=== PATIENT | female | born 1945 | race Caucasian/White ===

== ENCOUNTER 2019-04-23 15:11 | Inpatient (IN) | payer OTHER ==
[~2019-04-23] VITALS: Ht 154.9 cm; Wt 128.8 kg
[2019-04-23 16:01] VITALS: BP_SYST 116
--- NOTE | 2019-04-23 16:30 | NUR ---
Patient to ER bed 6 to gown for evaluation. Side rails up.
--- NOTE | 2019-04-23 16:42 | NUR ---
Patient presents to ER C/O leg pain, diarrhea, and body aches. Patient A&Ox4, afebrile, arrived via wheelchair, pain 10/10, diarrhea, nausea, denies emesis, bilat lower legs swollen, red, weeping edema. Patient states bilat lower leg pain and swelling x2 weeks.
--- NOTE | 2019-04-23 16:45 | NUR ---
ER at bedside examining patient.
[2019-04-23] MEDS ORDERED: NS 500 ML IV ONE (17:00)
[2019-04-23] MEDS ORDERED: KETOROLAC TROMETHAMINE 30 MG VIAL IVP ONE (17:00)
[2019-04-23 17:17] LABS: BASOPHILS % (AUTO) 0.5 % (0.0-2.0); EOSINOPHILS # (AUTO) 0.1 K/uL (0.0-0.4); EOSINOPHILS % (AUTO) 1.8 % (0.0-4.0); HEMATOCRIT 34.1 % (36-48); HEMOGLOBIN 11.3 g/dL (12.0-16.0); LYMPHOCYTES # (AUTO) 1.4 K/uL (1.0-5.5); LYMPHOCYTES % (AUTO) 24.6 % (20.5-51.5); MEAN CORPUSCULAR HEMOGLOBIN 30 pg (27-31); MEAN CORPUSCULAR HGB CONC 33 % (32-36); MEAN CORPUSCULAR VOLUME 90 fL (79.0-98.0); MONOCYTES # (AUTO) 0.7 K/uL (0.0-1.0); MONOCYTES % (AUTO) 12.7 % (1.7-9.3); NEUTROPHILS # (AUTO) 3.4 K/uL (1.8-7.7); NEUTROPHILS % (AUTO) 60.4 % (40.0-70.0); PLATELET COUNT (AUTO) 241 K/uL (130-430); RED BLOOD CELL COUNT(AUTO) 3.79 MIL/uL (4.2-6.2); RED CELL DISTRIBUTION WIDTH 14.2 % (9.0-15.0); WHITE BLOOD COUNT (AUTO) 5.6 K/uL (4.8-10.8)
--- NOTE | 2019-04-23 17:30 | NUR ---
# 18 gauge angiocath placed to left AC. Use of asceptic technique. Opsite placed over site. Blood return noted. Blood for lab drawn from site. Flushed with 10 cc of normal saline. No evidence of infiltration noted. Patient tolerated well. Medicated per MD orders. IVF infusing with no s/s of infiltration at this time. Will cont to monitor
[2019-04-23 17:37] LABS: PROTHROMBIN TIME 10.4 SECS (9.5-12.5)
[2019-04-23 17:39] LABS: ANION GAP 9 (5-15); CHLORIDE 100 mmol/L (98-107); GLUCOSE 198 mg/dL (70-99); POTASSIUM 4.2 mmol/L (3.5-5.1); SODIUM SERUM 134 mmol/L (136-145); UREA NITROGEN, BLOOD 59 mg/dL (8-21)
[2019-04-23 17:45] LABS: ALANINE AMINOTRANSFERASE 19 U/L (12-78); ASPARTATE AMINOTRANSFERASE 16 U/L (10-37); TOTAL BILIRUBIN 0.3 mg/dL (0.0-1.0)
[2019-04-23] MEDS ORDERED: ENOXAPARIN SODIUM 120 MG/0.8 ML SYRINGE SUBCUT ONE (17:45)
--- NOTE | 2019-04-23 18:00 | NUR ---
Patien taken off bed taylor, unable to provide urine.
[2019-04-23] MEDS ORDERED: VANCOMYCIN HCL 1,000 MG in NS 250 ML IV ONE (18:15)
[2019-04-23] MEDS ORDERED: VANCOMYCIN HCL 1000 MG/VIAL IV ONE (18:41)
--- NOTE | 2019-04-23 19:20 | NUR ---
Report to Marilyn sylvester
[2019-04-23 21:30] LABS: BILIRUBIN,URINE NEGATIVE (NEGATIVE); BLOOD, URINE 2+ (NEGATIVE); CLARITY/URINE CLEAR (CLEAR); COLOR,URINE YELLOW (YELLOW); GLUCOSE,URINE NEGATIVE (NEGATIVE); KETONES,URINE NEGATIVE (NEGATIVE); LEUKOCYTE ESTERASE ,URINE 2+ (NEGATIVE); NITRITE, URINE NEGATIVE (NEGATIVE); PROTEIN URINE NEGATIVE (NEGATIVE); UROBILINOGEN,URINE 0.2 (0.2-1.0)
--- NOTE | 2019-04-23 21:30 | NUR ---
PATIENT FOR ADMIT. PENDING ADMISSION BED ASSIGNMENT
[2019-04-23 21:58] LABS: WBC,URINE 20-50 /HPF (0-3)
[2019-04-23 21:59] LABS: BACTERIA,URINE RARE /HPF (None Seen); MUCUS,URINE 1+ /LPF (None Seen)
--- NOTE | 2019-04-23 23:00 | NUR ---
@2400 PATIENT URINE(BSC), AND STOOL FOR OB COLLECTED AND SENT TO LAB. PERICARE DONE, SKINCARE AND BARRIER CREAM APPLIED.@ PRESENT PATIENT OOB TO CHAIR. HAS HOSPITAL BED, FOR COMFORT MEASSURES, PENDING BED ASSIGNMENT.
[2019-04-24] MEDS ORDERED: ALBUTEROL SULFATE 0.083% 2.5 MG/3 ML VIAL.NEB INH PRN
[2019-04-24] MEDS ORDERED: ONDANSETRON HCL 4 MG/2 ML VIAL IVP PRN
--- NOTE | 2019-04-24 00:10 | NUR ---
PATIENT HAS A BED ASSIGNMENT RM 129B.
[2019-04-24 00:13] VITALS: BP_SYST 116
[2019-04-24] MEDS ORDERED: LEVOFLOXACIN 500 MG/D5W 100 ML IV SCH (00:30)
[2019-04-24] MEDS: metroNIDAZOLE 500 mg/NS 100 ML IV SCH ×5 (00:30→21:49)
[2019-04-24] MEDS ORDERED: LEVOFLOXACIN 500 MG/D5W 100 ML IV ONE (01:00)
--- NOTE | 2019-04-24 01:08 | NUR ---
ADMISSION NOTE Received patient from ER via gurney. Patient admitted with diagnosis of NONSTEMI. Patient is awake, alert, oriented X 4. Patient oriented to hospital room, call light, toileting, pain management and safety-teach back done. Patient informed that LAMONT will be HER nurse and that their room number is 129B. Personal belongings checked and Belongings List documented. Call light within reach.
--- NOTE | 2019-04-24 01:15 | NUR ---
Patient will be admitted to care of NOE Marquez. Admitted to TELE unit, RM 129B, VIA HOSP BED. Belongings list completed. Complete and up to date summary report printed. SBAR report to be given at bedside with opportunity for questions.
[2019-04-24 01:16] VITALS: BP_SYST 118
--- NOTE | 2019-04-24 02:20 | NUR ---
INITIAL NOTE AT INITIAL ASSESSMENT, PATIENT IS RESTING IN BED, STABLE, NO SIGNS OF RESPIRATORY DISTRESS. PATIENT VERBALIZES TOLERABLE PAIN AT THIS TIME. PLAN OF CARE FOR THE EVENING IS COMMUNICATED WITH THE PATIENT. PATIENT SUCCESSFULLY DEMONSTRATES CORRECT USAGE OF CALL LIGHT AT THIS TIME. BED IS LOCKED, ALARMED, AND AT THE LOWEST LEVEL. FALL AND SAFETY PRECAUTIONS WILL BE IN PLACE THROUGHOUT THE SHIFT.
--- NOTE | 2019-04-24 04:00 | NUR ---
WOUND CARE NOTE WOUND CARE PERFORMED AT THIS TIME, WOUND PICTURES ALSO TAKEN. PATIENT TOLERATED WELL. SHE IS REPOSITIONED FOR COMFORT. AT THIS TIME, SHE IS STABLE, NO SIGNS OF RESPIRATORY DISTRESS. CALL LIGHT IS WITHIN REACH. BED IS LOCKED, ALARMED, AND AT THE LOWEST LEVEL.
--- NOTE | 2019-04-24 04:08 | NUR ---
Consultation Paged Reason for Consultation: NSTEMI Was consult called: Y Person who was notified: Conventions Assistant 22 Consulting Physician: Adebayo Barajas Trade Economist Ordering Physician: Dr. Nielsen
[2019-04-24] MEDS ORDERED: metroNIDAZOLE 500 mg/NS 200 ML IV ONE (04:10)
[2019-04-24] MEDS ORDERED: LEVOFLOXACIN 250 MG/D5W 50 ML IV ONE ×2 (04:10→06:11)
[2019-04-24] MEDS: LEVOFLOXACIN 250 MG/D5W 50 ML IV SCH ×2 (04:53→20:11)
--- NOTE | 2019-04-24 06:00 | NUR ---
CLOSING NOTE BLOOD SUGAR CHECK AT THIS TIME REQUIRES INSULIN COVERAGE AT THIS TIME. PATIENT SLEPT WELL THROUGHOUT THE SHIFT. AT THIS TIME, SHE IS STABLE, NO SIGNS OF RESPIRATORY DISTRESS. CALL LIGHT IS WITHIN REACH. WILL CONTINUE TO MONITOR UNTIL SHIFT REPORT IS GIVEN AT BEDSIDE TO AM NURSE.
[2019-04-24] MEDS: ACETAMINOPHEN 325 MG TABLET PO PRN ×2 (06:02→17:04)
[2019-04-24] MEDS: INSULIN LISPRO SLIDING SCALE 100 UNITS/ML VIAL (humaLOG) SUBCUT PRN ×3 (06:19→20:22)
[2019-04-24 06:33] LABS: BASOPHILS % (AUTO) 0.5 % (0.0-2.0); EOSINOPHILS # (AUTO) 0.1 K/uL (0.0-0.4); EOSINOPHILS % (AUTO) 1.8 % (0.0-4.0); HEMATOCRIT 31.9 % (36-48); HEMOGLOBIN 10.5 g/dL (12.0-16.0); LYMPHOCYTES # (AUTO) 0.9 K/uL (1.0-5.5); LYMPHOCYTES % (AUTO) 15.6 % (20.5-51.5); MEAN CORPUSCULAR HEMOGLOBIN 30 pg (27-31); MEAN CORPUSCULAR HGB CONC 33 % (32-36); MEAN CORPUSCULAR VOLUME 91 fL (79.0-98.0); MONOCYTES # (AUTO) 0.7 K/uL (0.0-1.0); MONOCYTES % (AUTO) 12.1 % (1.7-9.3); PLATELET COUNT (AUTO) 192 K/uL (130-430); RED BLOOD CELL COUNT(AUTO) 3.52 MIL/uL (4.2-6.2); RED CELL DISTRIBUTION WIDTH 14.1 % (9.0-15.0); WHITE BLOOD COUNT (AUTO) 5.7 K/uL (4.8-10.8)
[2019-04-24 07:06] LABS: ALANINE AMINOTRANSFERASE 21 U/L (12-78); ALBUMIN 2.4 g/dL (3.4-4.8); ANION GAP 8 (5-15); ASPARTATE AMINOTRANSFERASE 17 U/L (10-37); CALCIUM 7.4 mg/dL (8.4-11.0); CHLORIDE 103 mmol/L (98-107); CREATININE 1.35 mg/dL (0.55-1.30); GLUCOSE 199 mg/dL (70-99); POTASSIUM 4.1 mmol/L (3.5-5.1); SODIUM SERUM 135 mmol/L (136-145); TOTAL BILIRUBIN 0.3 mg/dL (0.0-1.0); UREA NITROGEN, BLOOD 56 mg/dL (8-21)
--- NOTE | 2019-04-24 07:08 | NUR ---
INITIAL NOTE AT INITIAL ASSESSMENT, PATIENT IS RESTING IN BED, STABLE, NO SIGNS OF RESPIRATORY DISTRESS. PATIENT VERBALIZES TOLERABLE PAIN AT THIS TIME. PLAN OF CARE FOR THE EVENING IS COMMUNICATED WITH THE PATIENT. PATIENT SUCCESSFULLY DEMONSTRATES CORRECT USAGE OF CALL LIGHT AT THIS TIME. BED IS LOCKED, ALARMED, AND AT THE LOWEST LEVEL. FALL AND SAFETY PRECAUTIONS WILL BE IN PLACE THROUGHOUT THE SHIFT. Addendum: 04/24/19 at 0717 by Sergio Fam RN NOTE INTENDED FOR DIFFERENT TIME
[2019-04-24 08:00] VITALS: BP_SYST 105
--- NOTE | 2019-04-24 08:00 | NUR ---
OPENING NOTE: RECEIVED PATIENT FROM NOC RN. PATIENT RESTING IN BED WITH EYES CLOSED, AROUSAL TO LIGHT STIMULI. PATIENT ABLE TO OPEN EYES AND RESPOND TO LIGHT STIMULI. PATIENT ON ROOM AIR AND SATURATING WNL. NO ACUTE SIGNS OF RESP DISTRESS, NO SOB. BREATHING EVEN AND UNLABORED. IV INTACT AND PATENT, NO REDNESS/SWELLING TO SITE. BED AT LOWEST POSITION, CALL LIGHT IN REACH. CONTINUE TO MONITOR.
--- NOTE | 2019-04-24 08:14 | NUR ---
PAGED DR RO FOR CRITICAL LABS. SPOKE WITH ALTA [phone]
[2019-04-24 08:54] LABS: CHOLESTEROL 110 mg/dL (<200); HDL CHOLESTEROL 41 mg/dL (>55); TRIGLYCERIDES 221 mg/dL (30-150)
[2019-04-24 08:55] LABS: LDL CHOLESTEROL 42 mg/dL (<100)
[2019-04-24] MEDS: ASPIRIN 81 MG TAB.CHEW PO SCH (09:30)
--- NOTE | 2019-04-24 10:00 | NUR ---
ROUNDING: PATIENT IS AWAKE, ALERT AND ORIENTEDX4. PATIENT WATCHING TV. PATIENT TOLERATED AM MEDS PER MD ORDERS. DENIES PAIN AT THIS TIME. ALL NEEDS MET. CONTINUE TO MONITOR.
[2019-04-24] MEDS ORDERED: ISOS30TA6 PO (10:55)
[2019-04-24] MEDS ORDERED: APIX5TAB4 PO (10:55)
[2019-04-24] MEDS ORDERED: FERR159T2 PO (10:55)
[2019-04-24] MEDS ORDERED: HYDR-3698 PO (10:55)
[2019-04-24] MEDS ORDERED: GLUXR500 PO (10:55)
[2019-04-24] MEDS ORDERED: IMO2 PO (10:55)
[2019-04-24] MEDS ORDERED: LISI40TA4 PO (10:55)
[2019-04-24] MEDS ORDERED: FURO-150 PO (10:55)
[2019-04-24] MEDS ORDERED: ASPI-1153 PO (10:55)
[2019-04-24] MEDS ORDERED: LIP10 PO (10:55)
[2019-04-24] MEDS ORDERED: GLIP5TAB26 PO (10:55)
[2019-04-24] MEDS ORDERED: BUME1TAB8 PO (10:55)
[2019-04-24] MEDS ORDERED: GABA-531 PO (10:55)
[2019-04-24] MEDS ORDERED: HYDROcodone/ACETAMIN 5-325 MG TAB (NORCO/ VICODIN) PO PRN (11:30)
--- NOTE | 2019-04-24 11:30 | NUR ---
OCHOA CATH: # 16 FR Ochoa catheter with 10 cc bulb inserted with use of sterile technique. Bulb inflated with 10 cc sterile water. Immediate return of 300 cc yellow urine noted. Bedside drainage bag placed below level of bladder. Urine sample collected and sent to lab. Pt tolerated procedure.
--- NOTE | 2019-04-24 12:00 | NUR ---
ROUNDING: NO CHANGE IN PATIENT STATUS. CONTINUE TO MONITOR.
[2019-04-24 12:51] VITALS: BP_SYST 91
--- NOTE | 2019-04-24 13:39 | NUR ---
CONSULT GI GI BLEED DR GOVEA [phone] DR OCHOA FUEL HOUSE ATTENDANT S/W [facility]
--- NOTE | 2019-04-24 13:40 | NUR ---
CONSULT ID CELLULITIS DR HODGE [phone] S/W [facility]
--- NOTE | 2019-04-24 14:20 | NUR ---
PAGED DR. RO: PAGED DR. RO IN REGARDS TO PATIENT C/O CHEST PAIN. PER PATIENT "IM HAVING CHEST PRESSURE/PAIN BUT IT MIGHT BE BECAUSE I ATE SO FAST". PATIENT STATED 11/[address] AIKEN RESPONDED TO PAGE. RECEIVED NEW ORDERS, READ BACK AND VERIFIED ORDERS.
[2019-04-24] MEDS ORDERED: NITROGLYCERIN 0.4 MG TAB.SUBL SL PRN (14:30)
[2019-04-24] MEDS ORDERED: SIMETHICONE 80 MG TAB.CHEW PO ONE (14:30)
[2019-04-24] MEDS ORDERED: *HEPARIN PER PHARMACY XX ONE (14:30)
--- NOTE | 2019-04-24 14:50 | NUR ---
DR. AIKEN AT BEDSIDE: DR. AIKEN (EMR ANALYST) AT BEDSIDE TO SEE PATIENT. DR. AIKEN SPOKE TO PATIENT AND PATIENTS SISTER IN REGARDS TO PLAN OF CARE. PER DR. AIKEN "HOLD OFF ON THE HEPARIN DRIP. I DONT THINK SHE NEEDS IT RIGHT NOW". PATIENT STATED THAT HER CHEST PAIN IS GONE, "I RELIEVED SOME PRESSURE. I THINK IT WAS GAS AND I HAD TO BURP IT OUT. BUT I FEEL BETTER".
[2019-04-24] MEDS ORDERED: COMMUNICATION ORDER XX ONE (15:15)
--- NOTE | 2019-04-24 16:00 | NUR ---
ROUNDING: PATIENT FEELING BETTER, PATIENT AWAKE AND ALERT WATCHING TV. HER SISTER AT BEDSIDE. DENIES ANY COMPLAIN AT THIS TIME. WILL CONTINUE TO MONITOR.
[2019-04-24 16:55] VITALS: BP_SYST 118
--- NOTE | 2019-04-24 16:58 | NUR ---
WOUND EVALUATION: Wound Consult received from Dr. Corona. Thank you, Dr. Corona, for the consult. Patient received in a [place] Bed with a mattress, awake, alert, and oriented. Patient is unable to turn independently. Peterson Score is a 16. Past Medical History: Hypertension, Diabetes Mellitus, Hyperlipidemia, Pacemaker, Coronary Artery Bypass Surgery. Recent Labs: WBC 5.7, RBC 3.52, hemoglobin 10.5, hematocrit 31.9, BUN 56, creatinine 1.35, glucose 199, POC glucose 149, calcium 7.4, serum total protein 5.7, albumin 2.4, PTT 42.8. Microbiology: Blood culture results 2 in progress. Stool occult blood results negative. Urine culture results in progress. Intrinsic factors that delay wound healing: Diabetes Mellitus, Hypoalbuminemia. Extrinsic factors that delay wound healing: Decreased mobility. Wound Assessment: 1. Right distal posterior lower extremity: Venous insufficiency ulcer, present on admission. Wound bed has 70% yellow eschar, 30% pink tissue. Mild odor, small serous drainage. Periwound intact. Extremity has erythema, dry, scaly skin, firm edema, lipodermatosclerosis, and hemosiderin staining. Scant serous weeping on right medial aspect of calf. Wound measures 4.0 cm x 7.0 cm. Recommend: Cleanse wound with normal saline. Apply SurePrep to shelly-wound. Apply Eucerin cream to non-wound areas of leg and foot. Cover with non-adhesive foam dressings. Place oil emulsion dressing on right medial calf area where weeping is occurring. Wrap with jonnie wrap. Perform wound care daily, and as needed for dressing soiling or dislodgement. Elevate extremity as tolerated. Encourage 20 ankle pumps every hour. 2. Left mid posterior calf: Venous insufficiency ulcer, present on admission. Wound bed has 70% pink tissue, 30% white tissue. Mild odor, small serous drainage. Periwound intact. Extremity has erythema, dry, scaly skin, firm edema, lipodermatosclerosis, and hemosiderin staining. Wound measures 9.5 cm x 8.0 cm. Recommend: Cleanse wound with normal saline. Apply SurePrep to shelly-wound. Apply Eucerin cream to non-wound areas of leg and foot. Cover with non-adhesive foam dressings. Wrap with jonnie wrap. Perform wound care daily, and as needed for dressing soiling or dislodgement. Elevate extremity as tolerated. Encourage 20 ankle pumps every hour. 3. Abdominal pannus: Intertriginous dermatitis with erythema, present on admission. Recommend: Cleanse involved area with mild soap and water. Pat dry. Apply antifungal powder to involved area. Place pillow case in between abdominal pannus area. Perform site care twice a day, and as needed for soiling. Also recommend: Encourage and assist patient as needed with repositioning every 2 hours with pillow support and off-load pressure areas with pillows for pressure re-distribution. Offload, elevate and float bilateral heels with pillows. Perform skin care and monitor skin integrity Q shift. Use moisture barrier cream on buttocks and other moisture susceptible areas QID and as needed for soiling. Recommend arterial Doppler study with CHARLI to rule out arterial insufficiency. If CHARLI is within normal limits recommend adding compression to dressing order set.
[2019-04-24] MEDS ORDERED: EMOLLIENT COMBINATION NO.73 78 GM CREAM..G. TP SCH (17:45)
--- NOTE | 2019-04-24 18:00 | NUR ---
ROUNDING: PATIENT WAS SEEN BY PROJECT DIRECTOR, NIMISHA. PATIENT TOLERATED BILATERAL LEG EVALUATION FROM NIMISHA. NO ACUTE SIGNS OF RESP DISTRESS, NO SOB. BREATHING EVEN AND UNLABORED. WILL CONTINUE TO MONITOR. WILL ENDORSE PLAN OF CARE TO NOC RN.
[2019-04-24] MEDS ORDERED: BALSAM PERU/CASTOR OIL 60 GM OINT...G. TP ONE (19:00)
--- NOTE | 2019-04-24 19:20 | NUR ---
OPENING NOTES RECEIVED PATIENT IN BED AAO X4. BREATHING UNLABORED ON ROOM AIR. NO C/O PAIN AT THIS TIME. BED IN LOWEST LOCKED POSITION WITH ALARM ON. CALL LIGHT WITH IN REACH.
[2019-04-24 19:31] LABS: BILIRUBIN,URINE NEGATIVE (NEGATIVE); CLARITY/URINE CLEAR (CLEAR); COLOR,URINE YELLOW (YELLOW); GLUCOSE,URINE NEGATIVE (NEGATIVE); KETONES,URINE NEGATIVE (NEGATIVE); LEUKOCYTE ESTERASE ,URINE NEGATIVE (NEGATIVE); NITRITE, URINE NEGATIVE (NEGATIVE); PH,URINE 5.5 (5.0-8.0); PROTEIN URINE NEGATIVE (NEGATIVE); UROBILINOGEN,URINE 0.2 (0.2-1.0)
[2019-04-24 19:35] LABS: BLOOD, URINE TRACE (NEGATIVE)
[2019-04-24 19:58] VITALS: BP_SYST 95
[2019-04-24] MEDS: DOXYCYCLINE HYCLATE 100 MG CAPSULE PO SCH (20:11)
[2019-04-24] MEDS: EMOLLIENT COMBINATION NO.73 78 GM CREAM..G. TP SCH (20:12)
[2019-04-24] MEDS: NYSTATIN 15 GM TOPICAL POWDER TP SCH (20:13)
[2019-04-24 20:20] LABS: BACTERIA,URINE RARE /HPF (None Seen)
--- NOTE | 2019-04-24 20:30 | NUR ---
WOUND CARE WOUND CARE DONE ON BLE WOUNDS ORDERED. DUE MEDICATIONS GIVEN. VITAL SIGNS STABLE.
--- NOTE | 2019-04-24 22:10 | NUR ---
Pagestalin Nielsen s/w Negra
[2019-04-24] MEDS ORDERED: DIPHENHYDRAMINE HCL 25 MG CAPSULE PO PRN (22:15)
[2019-04-25 00:23] VITALS: BP_SYST 106
--- NOTE | 2019-04-25 00:25 | NUR ---
ROUNDS PATIENT RESTING IN BED. BREATHING UNLABORED. VITAL SIGNS STABLE. CALL LIGHT WITH IN REACH.
--- NOTE | 2019-04-25 02:40 | NUR ---
ROUNDS PATIENT RESTING IN BED. NO DISTRESS NOTED. CALL LIGHT WITH IN REACH.
[2019-04-25] MEDS: metroNIDAZOLE 500 mg/NS 100 ML IV SCH ×3 (05:48→20:48)
--- NOTE | 2019-04-25 07:10 | NUR ---
CLOSING NOTES PATIENT RESTING IN BED. BREATHING UNLABORED ON ROOM AIR. PATIENT NEEDS ATTENDED. KEPT NPO FOR STRESS TEST TODAY. BED IN LOWEST LOCKED POSITION. CALL LIGHT WITH IN REACH.
--- NOTE | 2019-04-25 07:20 | NUR ---
opening note patient is resting in bed, alert and oriented, educated head correction officer light system and plan of care, patient verbalized understanding, no signs of distress at this time, [employer] [place] came to talk to patient about the stress test, no other needs addressed at this time, brake armed, two side rails up, call light within reach, bed alarm on, fall/safety precautions in place. Addendum: 04/25/19 at 0740 by Ana Navas RN xochitl in place, IV dressing secured.
[2019-04-25 08:00] VITALS: BP_SYST 123
[2019-04-25] MEDS: EMOLLIENT COMBINATION NO.73 78 GM CREAM..G. TP SCH ×2 (09:00→21:01)
[2019-04-25] MEDS: BALSAM PERU/CASTOR OIL 60 GM OINT...G. TP SCH (09:00)
[2019-04-25] MEDS ORDERED: REGADENOSON 0.4 MG/5 ML SYRINGE IVP ONE (09:30)
--- NOTE | 2019-04-25 09:40 | NUR ---
patient off unit went for lexiscan stress test, Dr Cason saw patient before she left.
--- NOTE | 2019-04-25 10:42 | NUR ---
Nutrition Update Peterson Scale 16 noted. Pt admitted for NSTEMI. Diet: NPO BMI: 53.6 kg/m2 RD to follow per nutrition care standards.
--- NOTE | 2019-04-25 11:30 | NUR ---
patient back on unit patient back on unit, in stable condition.
[2019-04-25] MEDS: ATORVASTATIN 20 MG TABLET PO SCH (11:41)
[2019-04-25] MEDS: DOXYCYCLINE HYCLATE 100 MG CAPSULE PO SCH ×2 (11:41→20:48)
[2019-04-25] MEDS: ASPIRIN 81 MG TAB.CHEW PO SCH (11:41)
[2019-04-25] MEDS: ISOSORBIDE MONONITRATE 30 MG TAB.ER.24H PO SCH (11:42)
[2019-04-25] MEDS: NYSTATIN 15 GM TOPICAL POWDER TP SCH ×2 (11:43→21:01)
[2019-04-25 12:01] VITALS: BP_SYST 114
--- NOTE | 2019-04-25 12:08 | NUR ---
patient resting in bed visitor in the room, patient watching tv, informed patient about new diet, patient verbalized understanding, morning medications and blood sugar check were done, patient tolerated well, no other need at this time, no signs of distress at this time, fall/safety precautions in place.
--- NOTE | 2019-04-25 14:30 | NUR ---
IV antibiotic patient resting in bed, visitor at the bedside, watching tv, educated on medication use and side effects, patient verbalized understanding and tolerating well, no signs of distress at this time, no other needs addressed at this time, fall/safety precautions in place.
[2019-04-25 16:10] VITALS: BP_SYST 109
--- NOTE | 2019-04-25 16:26 | NUR ---
patient resting in bed patient watching tv, no signs of distress at this time, no other need at this time, no signs of distress at this time, fall/safety precautions in place.
--- NOTE | 2019-04-25 16:35 | NUR ---
Dietitian Recommendations * [facility] clear liquid[facility] * Consider advance to C[facility], cardiac diet if/when medically appropriate SWAPNA, RD Please refer to Nutrition Assessment for details. Addendum: 04/25/19 at [address] Amended: Links added.
[2019-04-25] MEDS ORDERED: BISACODYL 5 MG TABLET.DR (DULCOLAX) PO ONE (17:00)
[2019-04-25] MEDS: INSULIN LISPRO SLIDING SCALE 100 UNITS/ML VIAL (humaLOG) SUBCUT PRN ×2 (17:15→20:54)
[2019-04-25] MEDS ORDERED: GOLYTELY / COLYTE SOLUTION 4 LITERS PO ONE (18:00)
--- NOTE | 2019-04-25 18:55 | NUR ---
closing note patient is resting in bed, watching tv and eating dinner no signs of distress at this time, informed patient that she will not have colonoscopy tomorrow anymore, needs full cardiac clearance, no other needs addressed at this time, brake armed, two side rails up, call light within reach, bed alarm on, fall/safety precautions in place, leung in place, will endorse report to noc shift nurse to continue with care, will endorse wound care and pictures.
--- NOTE | 2019-04-25 19:05 | NUR ---
OPENING NOTES RECEIVED PATIENT IN BED AAO X4. BREATHING UNLABORED ON ROOM AIR. DENIES PAIN AT THIS TIME. BED IN LOWEST LOCKED POSITION WITH ALARM ON. CALL LIGHT WITH IN REACH.
[2019-04-25 20:43] VITALS: BP_SYST 106
--- NOTE | 2019-04-25 20:48 | NUR ---
MED PASS PATIENT DUE MEDICATIONS GIVEN. VITAL SIGNS STABLE.
--- NOTE | 2019-04-25 21:00 | NUR ---
WOUND CARE WOUND CARE DONE ON BILATERAL LOWER LEG WOUNDS ORDERED.
--- NOTE | 2019-04-26 00:20 | NUR ---
HS CARE HS CARE DONE BY SALES TRADER. LINENS CHANGED.
--- NOTE | 2019-04-26 01:20 | NUR ---
ROUNDS PATIENT RESTING IN BED. NO DISTRESS NOTED. VITAL SIGNS STABLE. CALL LIGHT WITH IN REACH.
[2019-04-26 02:13] VITALS: BP_SYST 118; BP_SYST 129
--- NOTE | 2019-04-26 03:30 | NUR ---
ROUNDS PATIENT RESTING IN BED. NO DISTRESS NOTED.
[2019-04-26] MEDS: metroNIDAZOLE 500 mg/NS 100 ML IV SCH ×3 (05:43→21:02)
--- NOTE | 2019-04-26 05:59 | NUR ---
MED PASS PATIENT DUE ANTIBIOTIC INFUSING. AM FINGER STICK SUGAR 143. NO INSULIN COVERAGE NEEDED. JELO PROVIDED PER PATIENT REQUEST.
--- NOTE | 2019-04-26 06:23 | NUR ---
CLOSING NOTES PATIENT NEEDS ATTENDED. BREATHING UNLABORED ON ROOM AIR. BED IN LOWEST LOCKED POSITION WITH ALARM ON. CALL LIGHT WITH IN REACH.
--- NOTE | 2019-04-26 07:00 | NUR ---
OPENING NOTES PT RESTING IN BED. CHEST RISE AND FALL NOTED. NONLABORED BREATHING NOTED. NO ACUTE DISTRESS NOTED. IV INTACT AND PATENT, NO INFILTRATION NOTED. OCHOA CATHETER INTACT AND PATENT, DRAINING WELL. WOUND DRESSING CLEAN, DRY, AND INTACT. PT DENIES PAIN. BED IN LOCKED AND LOWEST POSITION. BED ALARM ON. FALL AND ASPIRATION PRECAUTIONS IN PLACE. ALL NEEDS MET. CALL LIGHT IN REACH. CONTINUE TO MONITOR.
--- NOTE | 2019-04-26 07:53 | NUR ---
diet PATIENT HAS NOT BEEN CLEARED BY CARDIAC FOR COLONOSCOPY. MD BOTELLO CLEAR LIQUID DIET
[2019-04-26 08:00] VITALS: BP_SYST 134
[2019-04-26] MEDS: ISOSORBIDE MONONITRATE 30 MG TAB.ER.24H PO SCH (09:07)
[2019-04-26] MEDS: ATORVASTATIN 20 MG TABLET PO SCH (09:07)
[2019-04-26] MEDS: ASPIRIN 81 MG TAB.CHEW PO SCH (09:07)
[2019-04-26] MEDS: DOXYCYCLINE HYCLATE 100 MG CAPSULE PO SCH ×2 (09:07→21:01)
[2019-04-26] MEDS: EMOLLIENT COMBINATION NO.73 78 GM CREAM..G. TP SCH ×2 (09:08→21:02)
[2019-04-26] MEDS: NYSTATIN 15 GM TOPICAL POWDER TP SCH ×2 (09:08→21:02)
--- NOTE | 2019-04-26 09:08 | NUR ---
ROUTINE MEDS ROUTINE MEDS ADMINISTERED ORDERED PER MD. EDUCATION GIVEN. TOLERATED WELL. NO ACUTE DISTRESS NOTED. ALL NEEDS MET. CALL LIGHT IN REACH. CONTINUE TO MONITOR.
[2019-04-26] MEDS: BALSAM PERU/CASTOR OIL 60 GM OINT...G. TP SCH (09:09)
--- NOTE | 2019-04-26 09:10 | NUR ---
ROUTINE MEDS ROUTINE MEDS ADMINISTERED ORDERED PER MD. EDUCATION GIVEN. HOB ELEVATED. TOLERATED WELL. NO ACUTE DISTRESS NOTED. ALL NEEDS MET. CALL LIGHT IN REACH. CONTINUE TO MONITOR.
--- NOTE | 2019-04-26 11:32 | NUR ---
ACCUCHECK DONE. RESULT 254 MG/DL, EDUCATION GIVEN, TOLERATED WELL. INSULIN COVERAGE GIVEN ORDERED PER MD, EDUCATION GIVEN, TOLERATED WELL. NO ACUTE DISTRESS NOTED. ALL NEEDS MET. CALL LIGHT IN REACH. CONTINUE TO MONITOR.
[2019-04-26] MEDS: INSULIN LISPRO SLIDING SCALE 100 UNITS/ML VIAL (humaLOG) SUBCUT PRN ×2 (11:33→21:06)
[2019-04-26 12:38] VITALS: BP_SYST 116
--- NOTE | 2019-04-26 13:00 | NUR ---
TAKEN TO RADIOLOGY FOR PART TWO OF STRESS TEST. OFF THE FLOOR.
--- NOTE | 2019-04-26 14:15 | NUR ---
PT BACK ON FLOOR FROM RADIOLOGY PART TWO STRESS TEST. PATIENT STABLE. NO ACUTE DISTRESS NOTED. ALL NEEDS METS. CALL LIGHT IN REACH. CONTINUE TO MONITOR.
--- NOTE | 2019-04-26 16:00 | NUR ---
ROUNDS PT RESTING IN BED. CHEST RISE AND FALL NOTED. NONLABORED BREATHING NOTED. NO ACUTE DISTRESS. ALL NEEDS MET. CALL LIGHT IN REACH. CONTINUE TO MONITOR.
[2019-04-26 16:03] VITALS: BP_SYST 136
--- NOTE | 2019-04-26 16:49 | NUR ---
SPOKE WITH DR. ADAMS REPORTED RESULTS OF THE LEXISCAN - NO FURTHER ORDERS - PATIENT OKAY TO DISCHARGE.
--- NOTE | 2019-04-26 16:51 | NUR ---
OK PLANNING BED AVAILABLE AT [facility] [phone] ROOM 216B [facility] ON WILL CALL
--- NOTE | 2019-04-26 17:32 | NUR ---
TRANSPORT CALLED [facility] AT [phone] AND SPOKE WITH NILESH. AMBULANCE SCHEDULED FOR 2130 PICKUP
--- NOTE | 2019-04-26 19:03 | NUR ---
CLOSING NOTE PT AWAKE WATCHING TELEVISION IN BED. NO ACUTE DISTRESS NOTED. OCHOA CATHETER INTACT AND PATENT, DRAINING WELL. BED IN LOWEST AND LOCKED POSITION. BED ALARM ON. ALL NEEDS MET. CALL LIGHT IN REACH. FALL AND ASPIRATION PRECAUTIONS IN PLACE. WILL ENDORSE TO NOC NURSE. AMBULANCE PICK-UP TIME IS 2129.
--- NOTE | 2019-04-26 19:10 | NUR ---
OPENING NOTES RECEIVE REPORT FROM MORNING SHIFT NURSE. PATIENT AOX4, WATCHING TV. FOR DISCHARGE. PATIENT HAS NO SIGNS OF RESPIRATORY DISTRESS NOTED. DENIES PAIN AND DISCOMFORT. IV SITE, PATENCY NOTED. CALL LIGHT WITHIN REACH. PATIENT EDUCATED TO USE CALL LIGHT WHEN ASSISTANCE IS NEEDED. SAFETY PRECAUTIONS IN PLACE. BED ALARM ON. WILL CONTINUE TO MONITOR
--- NOTE | 2019-04-26 20:11 | NUR ---
REPORT GIVEN TO MARANDA PAN OF TIFFANIE NEGRETE AT THIS TIME.
[2019-04-26 20:12] VITALS: BP_SYST 140
--- NOTE | 2019-04-26 21:02 | NUR ---
MED PASS DUE MEDICATION GIVEN AT THIS TIME. PATIENT TOLERATED WELL. NO SIGNS OF RESPIRATORY DISTRESS NOTED. DENIES PAIN AND DISCOMFORT. WILL CONTINUE TO MONITOR
[2019-04-26 21:47] VITALS: BP_SYST 140
--- NOTE | 2019-04-26 22:25 | NUR ---
DISCHARGE REPORT GIVEN TO [facility]. PATIENTS VITAL SIGNS STABLE. IV CATHETER REMOVED AND INTACT. OCHOA CATHETER DISCONTINUE. TELEMONITOR REMOVED. NO SIGNS OF RESPIRATORY DISTRESS NOTED. DENIES PAIN AND DISCOMFORT AT THIS T1ME. PATIENT SAFELY TRANSFER TO AMBULANCE VIA [facility]. DISCHARGE AT [id number]
== END 2019-04-26 22:25 | DRG 280 ==
LOC: SED 15:11 → STU 19:40
PROVIDERS: ADMIT Internal Medicine Hospice and Palliative Medicine; ATTEND Internal Medicine Hospice and Palliative Medicine
DX: I21.A1 Myocardial infarction type 2 (principal); N17.0 Acute kidney failure with tubular necrosis; L03.115 Cellulitis of right lower limb; N39.0 Urinary tract infection, site not specified; I44.2 Atrioventricular block, complete; K92.2 Gastrointestinal hemorrhage, unspecified; L03.116 Cellulitis of left lower limb; D64.9 Anemia, unspecified; E11.9 Type 2 diabetes mellitus without complications; E66.01 Morbid (severe) obesity due to excess calories; E78.5 Hyperlipidemia, unspecified; I10 Essential (primary) hypertension; I25.10 Atherosclerotic heart disease of native coronary artery without angina pectoris; I87.8 Other specified disorders of veins; R07.89 Other chest pain; I87.2 Venous insufficiency (chronic) (peripheral); E78.00 Pure hypercholesterolemia, unspecified; Z83.3 Family history of diabetes mellitus; Z88.0 Allergy status to penicillin; Z95.0 Presence of cardiac pacemaker; Z95.1 Presence of aortocoronary bypass graft; Z95.5 Presence of coronary angioplasty implant and graft; Z68.53 Body mass index [BMI] pediatric, 85th percentile to less than 95th percentile for age; Z88.5 Allergy status to narcotic agent; Z79.899 Other long term (current) drug therapy; Z79.82 Long term (current) use of aspirin
CPT/HCPCS: 36415; 71045; 80053; 80061; 81000-TC; 82272; 82962; 83036; 83605; 84484; 85025; 85610-TC; 85730-TC; 87040-TC; 87086; 93005; 93017; 93306; 96365; 96366; 96372; 96375; 99285; A9500; G0378; J1650; J1885; J1956; J2405; J2785; J3370; J3490; J7040; J7050

== ENCOUNTER 2020-08-07 09:51 | Emergency (ER) | payer OTHER, SELFPAY ==
[~2020-08-07] VITALS: Ht 144.8 cm; Wt 158.8 kg
[2020-08-07 09:51] VITALS: BP_SYST 128
[~2020-08-07 09:51] MED LIST: APIX5TAB4 PO; ASPI-1393 PO; BUME1TAB8 PO; FURO-150 PO; GABA-531 PO; GLIP5TAB26 PO; GLUXR500 PO; INSU200I SQ; ISOS30TA85 PO; LIP10 PO; PRO40 PO
[2020-08-07] MEDS ORDERED: LORazepam 1 MG TABLET PO ONE (10:15)
[2020-08-07] MEDS ORDERED: MORPHINE 4 MG INJ. 4 MG/ML VIAL IVP ONE (10:15)
[2020-08-07] MEDS ORDERED: ASPIRIN 81 MG TAB.CHEW PO ONE (11:00)
[2020-08-07 11:02] LABS: BASOPHILS # (AUTO) 0.1 K/uL (0.0-0.2); BASOPHILS % (AUTO) 1.4 % (0.0-2.0); EOSINOPHILS # (AUTO) 0.2 K/uL (0.0-0.4); EOSINOPHILS % (AUTO) 3.3 % (0.0-4.0); HEMOGLOBIN 10.3 g/dL (12.0-16.0); LYMPHOCYTES # (AUTO) 1.4 K/uL (1.0-5.5); LYMPHOCYTES % (AUTO) 25.5 % (20.5-51.5); MEAN CORPUSCULAR HEMOGLOBIN 27 pg (27-31); MEAN CORPUSCULAR HGB CONC 31 % (32-36); MEAN CORPUSCULAR VOLUME 87 fL (79.0-98.0); MONOCYTES # (AUTO) 0.6 K/uL (0.0-1.0); MONOCYTES % (AUTO) 10.8 % (1.7-9.3); NEUTROPHILS # (AUTO) 3.1 K/uL (1.8-7.7); PLATELET COUNT (AUTO) 208 K/uL (130-430); RED BLOOD CELL COUNT(AUTO) 3.79 MIL/uL (4.2-6.2); RED CELL DISTRIBUTION WIDTH 15.4 % (9.0-15.0); WHITE BLOOD COUNT (AUTO) 5.3 K/uL (4.8-10.8)
[2020-08-07 11:06] LABS: ANION GAP 7 (5-15); CALCIUM 8.5 mg/dL (8.4-11.0); CHLORIDE 106 mmol/L (98-107); CREATININE 1.11 mg/dL (0.55-1.30); GLUCOSE 185 mg/dL (70-99); POTASSIUM 4.6 mmol/L (3.5-5.1); SODIUM SERUM 143 mmol/L (136-145); UREA NITROGEN, BLOOD 28 mg/dL (8-21)
[2020-08-07 11:08] LABS: ALANINE AMINOTRANSFERASE 39 U/L (12-78); ALBUMIN 3.3 g/dL (3.4-4.8); ASPARTATE AMINOTRANSFERASE 34 U/L (10-37); TOTAL BILIRUBIN 0.9 mg/dL (0.0-1.0)
[2020-08-07 15:30] VITALS: BP_SYST 113
== END 2020-08-07 15:31 | disposition home or self-care (01) ==
LOC: SED 09:51
DX: M47.894 Other spondylosis, thoracic region (principal); E66.01 Morbid (severe) obesity due to excess calories; R07.89 Other chest pain; R25.2 Cramp and spasm; I10 Essential (primary) hypertension; E11.9 Type 2 diabetes mellitus without complications; K21.9 Gastro-esophageal reflux disease without esophagitis; E78.00 Pure hypercholesterolemia, unspecified; Z95.0 Presence of cardiac pacemaker; Z79.899 Other long term (current) drug therapy; Z79.82 Long term (current) use of aspirin; Z88.0 Allergy status to penicillin; Z88.6 Allergy status to analgesic agent
CPT/HCPCS: 36415; 71045; 72072; 80053; 82550; 83880; 84484; 85025; 93005; 96374; 99285; J2270

== ENCOUNTER 2020-09-04 14:05 | Emergency (ER) | payer OTHER ==
[~2020-09-04] VITALS: Ht 144.8 cm; Wt 158.8 kg
[2020-09-04 14:26] VITALS: BP_SYST 128
[2020-09-04] MEDS ORDERED: fentaNYL CITRATE/PF 100 MCG/2 ML AMP IVP ONE (14:45)
[2020-09-04 15:19] LABS: ANION GAP 6 (5-15); CALCIUM 7.9 mg/dL (8.4-11.0); CHLORIDE 105 mmol/L (98-107); CREATININE 1.22 mg/dL (0.55-1.30); GLUCOSE 231 mg/dL (70-99); POTASSIUM 4.1 mmol/L (3.5-5.1); SODIUM SERUM 142 mmol/L (136-145); UREA NITROGEN, BLOOD 29 mg/dL (8-21)
[2020-09-04 15:26] LABS: EOSINOPHILS # (AUTO) 0.1 K/uL (0.0-0.4); EOSINOPHILS % (AUTO) 2.1 % (0.0-4.0); HEMATOCRIT 30.7 % (36-48); HEMOGLOBIN 9.7 g/dL (12.0-16.0); LYMPHOCYTES # (AUTO) 0.9 K/uL (1.0-5.5); LYMPHOCYTES % (AUTO) 20.2 % (20.5-51.5); MEAN CORPUSCULAR HEMOGLOBIN 27 pg (27-31); MEAN CORPUSCULAR HGB CONC 32 % (32-36); MEAN CORPUSCULAR VOLUME 85 fL (79.0-98.0); MONOCYTES # (AUTO) 0.5 K/uL (0.0-1.0); MONOCYTES % (AUTO) 10.8 % (1.7-9.3); NEUTROPHILS % (AUTO) 65.9 % (40.0-70.0); PLATELET COUNT (AUTO) 192 K/uL (130-430); RED CELL DISTRIBUTION WIDTH 16.2 % (9.0-15.0); WHITE BLOOD COUNT (AUTO) 4.6 K/uL (4.8-10.8)
[2020-09-04 15:27] LABS: ALANINE AMINOTRANSFERASE 29 U/L (12-78); ALBUMIN 2.9 g/dL (3.4-4.8); ASPARTATE AMINOTRANSFERASE 27 U/L (10-37); TOTAL BILIRUBIN 0.6 mg/dL (0.0-1.0)
[2020-09-04] MEDS ORDERED: FUROSEMIDE 20 MG/2 ML VIAL IVP ONE (16:00)
[2020-09-04 16:59] VITALS: BP_SYST 128
== END 2020-09-04 16:55 | disposition home or self-care (01) ==
LOC: SED 14:05
DX: R60.0 Localized edema (principal); I10 Essential (primary) hypertension; E11.9 Type 2 diabetes mellitus without complications; K21.9 Gastro-esophageal reflux disease without esophagitis; E78.00 Pure hypercholesterolemia, unspecified; Z88.0 Allergy status to penicillin; Z88.5 Allergy status to narcotic agent; Z79.82 Long term (current) use of aspirin; Z79.899 Other long term (current) drug therapy
CPT/HCPCS: 36415; 71045; 80053; 83880; 84484; 85025; 93005; 96374; 96375; 99285; J1940; J3010

== ENCOUNTER 2021-04-03 13:19 | Inpatient (IN) | payer OTHER, SELFPAY ==
[~2021-04-03] VITALS: Ht 152.4 cm; Wt 117.9 kg
[2021-04-03 13:35] VITALS: BP_SYST 138
--- NOTE | 2021-04-03 15:56 | NUR ---
BROUGHT BACK TO HALLWAY BED AND REPORT GIVEN TO RU
--- NOTE | 2021-04-03 16:06 | NUR ---
Report received from Bee LIU. Patient awake, alert and oriented x 3. Per report received, patient reporting chest discomfort and black stools at home. EKG done in triage. Labs being drawn at bedside now. Awaiting further evaluation.
[2021-04-03 16:23] LABS: BASOPHILS # (AUTO) 0.1 K/uL (0.0-0.2); BASOPHILS % (AUTO) 1.1 % (0.0-2.0); EOSINOPHILS # (AUTO) 0.1 K/uL (0.0-0.4); EOSINOPHILS % (AUTO) 1.8 % (0.0-4.0); HEMATOCRIT 33.5 % (36-48); HEMOGLOBIN 10.7 g/dL (12.0-16.0); LYMPHOCYTES # (AUTO) 1.3 K/uL (1.0-5.5); LYMPHOCYTES % (AUTO) 22.4 % (20.5-51.5); MEAN CORPUSCULAR HEMOGLOBIN 28 pg (27-31); MEAN CORPUSCULAR HGB CONC 32 % (32-36); MEAN CORPUSCULAR VOLUME 88 fL (79.0-98.0); MONOCYTES # (AUTO) 0.4 K/uL (0.0-1.0); MONOCYTES % (AUTO) 7.9 % (1.7-9.3); NEUTROPHILS # (AUTO) 3.8 K/uL (1.8-7.7); NEUTROPHILS % (AUTO) 66.8 % (40.0-70.0); PLATELET COUNT (AUTO) 160 K/uL (130-430); RED CELL DISTRIBUTION WIDTH 17.2 % (9.0-15.0); WHITE BLOOD COUNT (AUTO) 5.7 K/uL (4.8-10.8)
[2021-04-03 16:39] LABS: ANION GAP 2 (5-15); CALCIUM 8.5 mg/dL (8.4-11.0); CHLORIDE 101 mmol/L (98-107); CREATININE 0.91 mg/dL (0.55-1.30); GLUCOSE 158 mg/dL (70-99); POTASSIUM 4.3 mmol/L (3.5-5.1); SODIUM SERUM 137 mmol/L (136-145); UREA NITROGEN, BLOOD 32 mg/dL (8-21)
[2021-04-03 16:48] LABS: ALANINE AMINOTRANSFERASE 27 U/L (12-78); ALBUMIN 3.4 g/dL (3.4-4.8); ASPARTATE AMINOTRANSFERASE 21 U/L (10-37); TOTAL BILIRUBIN 1.2 mg/dL (0.0-1.0)
--- NOTE | 2021-04-03 18:37 | NUR ---
Put on manager energy. VSS. O2 low 80's; patient stated she is on O2 at home. Placed on 3L nasal cannula.
--- NOTE | 2021-04-03 19:15 | NUR ---
Report given to Reina LIU to assume care of patient
--- NOTE | 2021-04-03 19:17 | NUR ---
REPORT RECEIVED FROM GABRIELA LIU
[2021-04-03] MEDS ORDERED: HYDROcodone/ACETAMIN 5-325 MG TAB (NORCO/ VICODIN) PO ONE (19:45)
--- NOTE | 2021-04-03 19:49 | NUR ---
PT C/O OF ABD PAIN, ABD PAIN, AND HEADACHE. STILL REQUESTING FOOD DUE TO HAVING CONTINUED ABD PAIN, HEADACHE, AND LEFT SIDED CHEST PAIN. MD AWARE. ASSISTED MD AT BEDSIDE FOR GUAIC TEST. REMAINS ON BEDSIDE MONITOR
--- NOTE | 2021-04-03 20:00 | NUR ---
REDNESS AND SWELLING LOOKS LIKE CELLULITIS TO ABD AND BILATERAL LOWER EXTREMITIES. PT STATES SHE HAS A HISTORY OF CELLULITIS
--- NOTE | 2021-04-03 20:00 | NUR ---
PT HAS SWELLING TO BILATERAL LEGS AND ABD. BOTH AREAS RED IN COLOR AND PAINFUL TO TOUCH.
--- NOTE | 2021-04-03 20:02 | NUR ---
PT ORDERED NORCO FOR PAIN, PT REFUSED NORCO, MED WASTED
[2021-04-03] MEDS ORDERED: ONDANSETRON HCL 4 MG/2 ML VIAL IVP PRN ×2 (22:15→22:30)
[2021-04-03] MEDS ORDERED: NACL 0.9% 1,000 ML IV SCH (22:15)
[2021-04-03] MEDS ORDERED: MORPHINE 4 MG INJ. 4 MG/ML VIAL IVP PRN (22:30)
[2021-04-03] MEDS ORDERED: PANTOPRAZOLE SODIUM 40 MG/VIAL (PROTONIX) IVP ONE (22:45)
--- NOTE | 2021-04-03 23:10 | NUR ---
PT STILL COMPLAINING OD ABD PAIN -11/12 WILL MEDICATE ORDERD.
--- NOTE | 2021-04-03 23:13 | NUR ---
COVID SWAB COLLECTED AND HANDED TO LAB TACH.
[2021-04-03] MEDS ORDERED: MORPHINE 4 MG INJ. 4 MG/ML VIAL ONE (23:21)
--- NOTE | 2021-04-03 23:21 | NUR ---
W=ILL MEDICATE ORDERED WITH ADMIT ORDERS FOR PT FOR PAIN
--- NOTE | 2021-04-04 01:24 | NUR ---
PT SLEEPING, RESPIRATIOND REGULAR EVEN AND UNLABORED . CONTINUES TO MONITOR. WAITING FORA BED AT THIS TIME
--- NOTE | 2021-04-04 01:48 | NUR ---
Chuck king in ED - 04/04/21 at 0149 by [email or web address] PT PLACED ON BEDPAN, NEEDS TO URINATE.
--- NOTE | 2021-04-04 01:50 | NUR ---
PT PLACED ON BEDPAN, NEEDS TO URINATE.
--- NOTE | 2021-04-04 03:50 | NUR ---
PT MOVED TO BED 2. CONTINUES TO C/O NONSTOP PAIN TO ENTIRE BODY AT THIS POINT. UNABLE, TO HELP PT GET COMFORTABLE IN BED.
[2021-04-04] MEDS: MORPHINE 2 MG/ML INJ. SYRINGE IVP PRN ×3 (04:03→20:53)
--- NOTE | 2021-04-04 05:12 | NUR ---
ASSISTED PT ONTO BEDPAN, URINATED APPROX 250 ML OF URINE. WILL CONTINUE TO MONITOR PT
--- NOTE | 2021-04-04 06:12 | NUR ---
PT STILL MOANING AND CRYING IN REGARDS TO BEING IN TOTAL BODY PAIN. CONTINUES TO ASK FOR WATER , ADVISED PT SHE IS NPO WHICH MEANS SHE CANNOT HAVE ANYTHING TO EAT OR DRINK. PT REMAINS ON BEDSIDE MONITOR, IV INFUSING AT 120ML/HR.
--- NOTE | 2021-04-04 06:17 | NUR ---
DR SULTANA ADVISED OF CELLULITIS. ASKED IF HE WANTED TO VIEW, NO NEW ORDERS AT THIS TIME
--- NOTE | 2021-04-04 06:34 | NUR ---
IV TO RAC INFILTRATED, IV D/C'ED AND ICE PACK APPLIED TO AREA. NOCWARM BLANKETS TO APPLY. NEW IV STARTED TO LAC, IV FUSING.
--- NOTE | 2021-04-04 06:49 | NUR ---
MEDICATING WITH MORE PAIN MEDS. PT IS CONSTAMTLY CRYING, C/O EVERYTHING HURTING, NOW ITS HER BOOBS INCLUDED IN HER ENTIRE BODY. GOING TO MEDICATE AGAIN WITH MORPHINE. PT STILL ON BEDSIDE MONITOR, V/S REMAIN STABLE. ICE PACK REMOVED FROMRIGHT ARM DUE TO PT COMPLAINING ITS TOO COLD AND CAUSING MORE PAIN. PT ALSO CONTINOUSLY COMPLAINS ABOUT NEEDING WATER THAT SHES DEHYDRATED, ADVISED PT SHE IS RECEIVING IV FLUIDS WHICH IS HYDRATING HER. WANTS TO KNOW WHEN THE DOCTOR WILL BE IN SO SHE CAN EAT OR DRINK. TOLD PT UNABLE TO PROVIDE SPECIFIC TIME AND THE IMPORTANCE OF HER NOT TAKING ANYTHING BY MOUTH DUE TO GI BLEED R/O. PT LAYING IN BED CRYING.
[2021-04-04] MEDS: NACL 0.9% 1,000 ML IV SCH ×2 (07:20→16:39)
--- NOTE | 2021-04-04 07:21 | NUR ---
REPORT GIVEN TO JOHNSON LIU FOR CONTINUED CARE
--- NOTE | 2021-04-04 07:23 | NUR ---
Dr Jensen evaluating patient at bedside .
[2021-04-04] MEDS ORDERED: APIX5TAB4 PO (08:00)
[2021-04-04] MEDS ORDERED: INSU100V3 SQ (08:00)
[2021-04-04] MEDS ORDERED: TOPXL100 PO (08:00)
--- NOTE | 2021-04-04 08:13 | NUR ---
order received from Dr Jensen for clear liquid diet.diet well tolerated
--- NOTE | 2021-04-04 08:56 | NUR ---
Pt A&Ox4, VSS, respirations even and unlabored, cap refill <3
[2021-04-04] MEDS ORDERED: PANTOPRAZOLE SODIUM 40 MG/VIAL (PROTONIX) IVP SCH (09:00)
[2021-04-04] MEDS: PANTOPRAZOLE SODIUM 40 MG/VIAL (PROTONIX) IVP SCH ×2 (09:46→20:51)
--- NOTE | 2021-04-04 10:05 | NUR ---
pt transfer to hospital bed, well tolerated
--- NOTE | 2021-04-04 12:00 | NUR ---
Called Dr Mcnair to notify patient has redness/itching/possible skin infection on upper and lower extremities, awaiting for call back
--- NOTE | 2021-04-04 14:47 | NUR ---
Called Dr Kee to lam[place] about redness and itching on bilateral extremities, no answer
[2021-04-04] MEDS ORDERED: METOCLOPRAMIDE HCL 10 MG/2 ML VIAL IVP PRN (15:00)
--- NOTE | 2021-04-04 15:10 | NUR ---
Dr Harris at bedside evaluating patient at this time.
[2021-04-04] MEDS ORDERED: ONDANSETRON HCL 4 MG/2 ML VIAL IVP PRN (15:15)
[2021-04-04] MEDS ORDERED: IPRATROPIUM BROM 0.5 MG/2.5 ML VIAL.NEB (ATROVENT) INH PRN (15:15)
[2021-04-04] MEDS ORDERED: ACETAMINOPHEN 325 MG TABLET PO PRN (15:15)
[2021-04-04] MEDS ORDERED: LORazepam 2 MG/ML VIAL IVP PRN (15:15)
[2021-04-04] MEDS ORDERED: ALBUTEROL SULFATE 0.083% 2.5 MG/3 ML VIAL.NEB INH PRN (15:15)
[2021-04-04] MEDS ORDERED: HYDROcodone/ACETAMIN 5-325 MG TAB (NORCO/ VICODIN) PO PRN (15:15)
[2021-04-04] MEDS ORDERED: HYDROcodone/ACETAMIN 10-325 MG TAB PO PRN (15:15)
[2021-04-04] MEDS ORDERED: NALOXONE HCL 0.4 MG/ML AMP (NARCAN) IVP PRN ×2 (15:15)
--- NOTE | 2021-04-04 15:26 | NUR ---
Pt A&Ox4, respirations even and unlabored, cap refill <3.
--- NOTE | 2021-04-04 15:26 | NUR ---
Lab at bedside
[2021-04-04] MEDS ORDERED: DIPHENHYDRAMINE INJ 50 MG/ML VIAL ONE ×2 (15:49→22:17)
[2021-04-04] MEDS: DIPHENHYDRAMINE INJ 50 MG/ML VIAL IVP PRN ×2 (16:00→22:18)
--- NOTE | 2021-04-04 17:26 | NUR ---
Pt eating dinner at this time, (clear liquid diet )well tolerated .
--- NOTE | 2021-04-04 18:13 | NUR ---
Lab at bedside
--- NOTE | 2021-04-04 19:17 | NUR ---
Report given to October RN
--- NOTE | 2021-04-04 19:27 | NUR ---
REPORT RECEICED FROM JOHNSON LIU
--- NOTE | 2021-04-04 19:44 | NUR ---
PT RESTING IN BED AT THIS TIME, REMAINS ON BEDSIDE MONITOR. DENIES ANY DISTRESS AT THIS TIME. WILL CONTINUE TO MONITOR.
--- NOTE | 2021-04-04 20:21 | NUR ---
PT CONTINUES TO BEND HER ARM WITH THE IV, BOARD AND WRAP PUT IN PLACED
[2021-04-04] MEDS ORDERED: MORPHINE 2 MG/ML INJ. SYRINGE ONE ×2 (20:40→23:57)
[2021-04-04] MEDS ORDERED: PANTOPRAZOLE SODIUM 40 MG/VIAL (PROTONIX) ONE ×2 (20:40→20:45)
[2021-04-04] MEDS ORDERED: GABAPENTIN 100 MG CAPSULE ONE (20:40)
[2021-04-04] MEDS: glipiZIDE XL 5 MG TAB ( GLUCOTROL XL) PO SCH (20:51)
--- NOTE | 2021-04-04 20:53 | NUR ---
PT STATES SHE WANTS TO TALK TO HER DOCTOR TO FIND OUT WHATS GOING ON WITH HER STATUS, ADVISED GI DOC WAS HERE THIS MORNING, PT DOESNT NOT RECALL TALKING TO HIM. STATES SHESTILL HAS PAIN AND IS UNCOMFORTABLE. LET PT KNOWADMITTING DOCTOR WILL NOT BE IN TO SEE HER TONIGHT.
[2021-04-04] MEDS: GABAPENTIN 100 MG CAPSULE PO SCH (21:10)
--- NOTE | 2021-04-04 22:13 | NUR ---
PT CONTINUES TO HAVING ITCHING TI ARMS AND CHEST, WILL MEDICATE WITH BENADRYL
--- NOTE | 2021-04-04 23:50 | NUR ---
PT C/O THAT SHE NEEDS TO BE REPOSITONED IN BED. PT CONTINOUSLY C/O PAIN WITH EVERY MOVEMENT AND TOUCHING OF PT. WILL MEDICATE FOR PAIN ORDERED.
--- NOTE | 2021-04-05 01:20 | NUR ---
BEDSIDE MONITOR SHOWS BP 150/89 68 94% 17
--- NOTE | 2021-04-05 02:26 | NUR ---
PT'S IV STILL INFUSING, PT CONTINUES TO BEND HER ARM EVEN WITH BOARD IN PLACE.
--- NOTE | 2021-04-05 02:44 | NUR ---
PT FINALLY SLEEPING, REMAINS ON MONITOR. RESPIRATIONS REGULAR EVEN AND UNLABORED. BED IN LOWEST POSTION, SIDERAIL UP X 1 AND BED LOCKED
[2021-04-05] MEDS: DIPHENHYDRAMINE INJ 50 MG/ML VIAL IVP PRN (03:31)
[2021-04-05] MEDS: MORPHINE 2 MG/ML INJ. SYRINGE IVP PRN ×2 (03:32→06:47)
[2021-04-05] MEDS ORDERED: DIPHENHYDRAMINE INJ 50 MG/ML VIAL ONE (03:34)
[2021-04-05] MEDS ORDERED: MORPHINE 2 MG/ML INJ. SYRINGE ONE ×2 (03:35→06:43)
--- NOTE | 2021-04-05 03:42 | NUR ---
ALSO HAVING LEG AND FOOT PAIN, MEDICATED ORDERED
--- NOTE | 2021-04-05 03:42 | NUR ---
PT CONTINUES TO COMPLAIN OF HER ANKLES AND FEET ITCHING AND REQUESTIING ME TO SCRATCH THEM. MEDICATED WITH BENADRYL. ADVISED UNABLE TO SCRATCH HER FEET
[2021-04-05] MEDS: NACL 0.9% 1,000 ML IV SCH ×3 (04:01→16:43)
--- NOTE | 2021-04-05 06:47 | NUR ---
PT AWAKE AND STILL C/O OF TOTAL BODY ACHES AND ITCHING. STATES BLOOD PRESSURE CUFF TOO PAINFUL, MOVING HER HURTS TO MUCH. REQUESTED MORE MEDS
--- NOTE | 2021-04-05 07:20 | NUR ---
REPORT GIVEN TO ROME LIU
--- NOTE | 2021-04-05 07:55 | NUR ---
PT IS RESTING IN BED. STABLE AND CALM.
--- NOTE | 2021-04-05 08:30 | NUR ---
PT HAD REFUSED LAB DRAW THIS MORNING. RN ASKED PT AFTER THE FLAME ANNEALING MACHINE SETTER, AND PT CONTINUES TO REFUSE.
--- NOTE | 2021-04-05 11:25 | NUR ---
RN HAS BEEN ADVISED TO HOLD COUMADIN. NOTED
--- NOTE | 2021-04-05 11:35 | NUR ---
CONSULTATION PAGED/CALLED Reason for Consultation: [] CHF Person Who was Notified: [] KALPANA Consulting Physician: [] DR KIM Database Consultant Specialty: [] BUSINESS DEVELOPMENT Ordering Physician: [] DR SALGADO/
--- NOTE | 2021-04-05 11:38 | NUR ---
CONSULTATION PAGED/CALLED Reason for Consultation: [] CELLULITIS Person Who was Notified: [] KALPANA Consulting Physician: [] DR PERAZA Sectionizer Specialty: [] ID Ordering Physician: [] DR SALGADO
--- NOTE | 2021-04-05 12:59 | NUR ---
PT BEING TAKEN TO THE TELEMETRY FLOOR NOW.
--- NOTE | 2021-04-05 13:25 | NUR ---
Patient transferred from ER to telemetry unit in stable condition.
[2021-04-05 13:30] VITALS: BP_SYST 95
[2021-04-05] MEDS: BUMETANIDE 1 MG TABLET PO SCH (14:30)
[2021-04-05] MEDS: METOPROLOL SUCCINATE 50 MG TAB.SR.24H (TOPROL XL) PO SCH (14:30)
[2021-04-05] MEDS: PANTOPRAZOLE SODIUM 40 MG/VIAL (PROTONIX) IVP SCH ×2 (14:30→22:28)
[2021-04-05] MEDS: ISOSORBIDE MONONITRATE 30 MG TAB.ER.24H PO SCH (14:30)
[2021-04-05] MEDS: glipiZIDE XL 5 MG TAB ( GLUCOTROL XL) PO SCH ×2 (14:30→22:28)
[2021-04-05] MEDS: GABAPENTIN 100 MG CAPSULE PO SCH ×2 (16:23→22:28)
[2021-04-05] MEDS: ATORVASTATIN 10 MG TABLET PO SCH (16:23)
--- NOTE | 2021-04-05 16:25 | NUR ---
Routine Scheduled medications given per order. Patient stable.
--- NOTE | 2021-04-05 16:45 | NUR ---
Routine Started new IVF bag. Patient stable.
[2021-04-05 17:07] VITALS: BP_SYST 106
--- NOTE | 2021-04-05 17:18 | NUR ---
Routine Checked blood sugar: 80 mg/dl - no coverage required. Patient stable; resting quietly in bed with no distress noted and no complaint of pain.
[2021-04-05 21:00] VITALS: BP_SYST 115
[2021-04-06 01:00] VITALS: BP_SYST 109
[2021-04-06] MEDS: NACL 0.9% 1,000 ML IV SCH ×3 (01:20→16:17)
--- NOTE | 2021-04-06 05:06 | NUR ---
Reposition & Turning patient on two hour schedule , new linin applied comfort measures implemented off loading with pillows no SOB activity tolerated skin dry warm .
[2021-04-06 08:00] VITALS: BP_SYST 131
[2021-04-06] MEDS ORDERED: DIPHENHYDRAMINE HCL 12.5 MG/5 ML UDC PO PRN (09:00)
[2021-04-06] MEDS: PANTOPRAZOLE SODIUM 40 MG/VIAL (PROTONIX) IVP SCH ×2 (09:16→21:27)
[2021-04-06] MEDS: glipiZIDE XL 5 MG TAB ( GLUCOTROL XL) PO SCH ×2 (09:17→21:27)
[2021-04-06] MEDS: ATORVASTATIN 10 MG TABLET PO SCH (09:18)
[2021-04-06] MEDS: GABAPENTIN 100 MG CAPSULE PO SCH ×3 (09:18→21:27)
[2021-04-06] MEDS: BUMETANIDE 1 MG TABLET PO SCH (09:18)
[2021-04-06] MEDS: METOPROLOL SUCCINATE 50 MG TAB.SR.24H (TOPROL XL) PO SCH (09:19)
[2021-04-06] MEDS: ISOSORBIDE MONONITRATE 30 MG TAB.ER.24H PO SCH (09:19)
[2021-04-06] MEDS: HYDROcodone/ACETAMIN 7.5-325 MG TAB PO PRN ×2 (09:20→13:49)
--- NOTE | 2021-04-06 11:28 | NUR ---
Nutrition Update Peterson Scale 17 noted. Pt admitted for GI bleed. Diet: clear liquid BMI: 51 kg/m2 RD to follow per nutrition care standards.
--- NOTE | 2021-04-06 12:20 | NUR ---
alert, oriented, didnot even want to talk much, " Had a bad night, cant sleep here , too noisy, want to be left alone, however asked whether she can have pain meds. when asked where the pain which bothered her, " all over, wants morphine if possible". My initial assessment revealed she will need NORCO, instead. on bedrest with brp, still on clear liquid. Did not want to eat, just want to rest for now
--- NOTE | 2021-04-06 17:04 | NUR ---
Dietitian Recommendations * Consider advance to full liquid diet if/when medically appropriate LP, RD Please refer to Nutrition Assessment for details. Addendum: 04/06/21 at [address] Amended: Links added.
[2021-04-06] MEDS: INSULIN REGULAR, HUMAN 100 UNITS/ML, 10 ML VIAL (humuLIN R) SUBCUT PRN (18:38)
[2021-04-06 21:00] VITALS: BP_SYST 133
--- NOTE | 2021-04-06 21:51 | NUR ---
Patient awake alert HOB elevated ORANGE JUICE po given , assist for position change also off loading with pillows comfort measures implemented Heels kept elevated / .
[2021-04-07 00:10] VITALS: BP_SYST 92
[2021-04-07] MEDS: NACL 0.9% 1,000 ML IV SCH ×3 (01:25→16:14)
[2021-04-07] MEDS: INSULIN REGULAR, HUMAN 100 UNITS/ML, 10 ML VIAL (humuLIN R) SUBCUT PRN ×2 (01:28→17:57)
--- NOTE | 2021-04-07 06:06 | NUR ---
Blood Sugar Glucose BSG 149mg dl patienr awake & alert ORANGE JUICE po given tolerated / .
[2021-04-07] MEDS: glipiZIDE XL 5 MG TAB ( GLUCOTROL XL) PO SCH ×2 (08:44→21:28)
[2021-04-07 08:45] VITALS: BP_SYST 90
[2021-04-07] MEDS: BUMETANIDE 1 MG TABLET PO SCH (08:45)
--- NOTE | 2021-04-07 08:45 | NUR ---
Pt resting in bed at 0700, A+Ox4. Pt denies pain. IV noted- IVF infusing- patent. CSMW satisfactory. Pt c/o headache. No dizziness, chest pain, N+T. Pt obese/puffy, ?edema globally. Lungs diminished. SOBOE and dry cough noted. 2L PIPELINE CONSTRUCTION INSPECTOR 97%. bs x4. void QS. No n+v. Will assess skin this afternoon. VSS. Med accepting. Pt eager to go home. Will continue to monitor. Addendum: 04/07/21 at 1102 by Shira Anderson RN BP soft. Reviewed with Dr. júnior nance with am bp meds to be given per eMAR.
[2021-04-07] MEDS: ATORVASTATIN 10 MG TABLET PO SCH (08:46)
[2021-04-07] MEDS: GABAPENTIN 100 MG CAPSULE PO SCH ×3 (08:46→21:28)
[2021-04-07] MEDS: PANTOPRAZOLE SODIUM 40 MG/VIAL (PROTONIX) IVP SCH ×2 (08:46→21:28)
[2021-04-07] MEDS: METOPROLOL SUCCINATE 50 MG TAB.SR.24H (TOPROL XL) PO SCH (08:48)
[2021-04-07] MEDS: ISOSORBIDE MONONITRATE 30 MG TAB.ER.24H PO SCH (09:00)
[2021-04-07 11:39] VITALS: BP_SYST 100
--- NOTE | 2021-04-07 12:45 | NUR ---
LAB INFORMED BY FAIZAN THAT HE IS UNABLE TO DRAW LABS (HARD STICK) INFORMED DR SALGADO (ON THE FLOOR) HE STATES LABS MUST BE DRAWN, AND TO HAVE LAB TRY AGAIN. INFORMED FAIZAN OF DR IZQUIERDO REQUEST HE STATES HE WILL HAVE ANOTHER TECH ATTEMPT TO DRAW LABS., RN INFORMED
[2021-04-07 13:31] LABS: BASOPHILS % (AUTO) 0.3 % (0.0-2.0); EOSINOPHILS # (AUTO) 0.2 K/uL (0.0-0.4); EOSINOPHILS % (AUTO) 2.1 % (0.0-4.0); HEMATOCRIT 31.1 % (36-48); HEMOGLOBIN 10.1 g/dL (12.0-16.0); LYMPHOCYTES # (AUTO) 0.6 K/uL (1.0-5.5); LYMPHOCYTES % (AUTO) 7.6 % (20.5-51.5); MEAN CORPUSCULAR HEMOGLOBIN 29 pg (27-31); MEAN CORPUSCULAR HGB CONC 32 % (32-36); MEAN CORPUSCULAR VOLUME 90 fL (79.0-98.0); MONOCYTES # (AUTO) 0.6 K/uL (0.0-1.0); MONOCYTES % (AUTO) 8.4 % (1.7-9.3); NEUTROPHILS # (AUTO) 5.9 K/uL (1.8-7.7); NEUTROPHILS % (AUTO) 81.6 % (40.0-70.0); PLATELET COUNT (AUTO) 157 K/uL (130-430); RED BLOOD CELL COUNT(AUTO) 3.47 MIL/uL (4.2-6.2); RED CELL DISTRIBUTION WIDTH 17.9 % (9.0-15.0); WHITE BLOOD COUNT (AUTO) 7.3 K/uL (4.8-10.8)
[2021-04-07 13:41] LABS: ANION GAP 6 (5-15); CHLORIDE 99 mmol/L (98-107); CREATININE 2.15 mg/dL (0.55-1.30); GLUCOSE 265 mg/dL (70-99); POTASSIUM 4.7 mmol/L (3.5-5.1); SODIUM SERUM 132 mmol/L (136-145); UREA NITROGEN, BLOOD 39 mg/dL (8-21)
[2021-04-07 15:33] VITALS: BP_SYST 97
--- NOTE | 2021-04-07 17:35 | NUR ---
PT EVAL AND INITIAL TX COMPLETED, PLAN OF CARE ESTABLISHED. SEE EVAL FOR DETAILS.
--- NOTE | 2021-04-07 18:27 | NUR ---
Pt resting in bed. No voiced concerns. Eating dinner. Bed in low position. ivf infusing. call whelan in reach. Will continue to monitor.
[2021-04-07 20:09] VITALS: BP_SYST 129
[2021-04-08 00:49] VITALS: BP_SYST 94
[2021-04-08] MEDS: INSULIN REGULAR, HUMAN 100 UNITS/ML, 10 ML VIAL (humuLIN R) SUBCUT PRN ×2 (01:41→18:17)
[2021-04-08] MEDS: NACL 0.9% 1,000 ML IV SCH (02:30)
[2021-04-08 03:39] VITALS: BP_SYST 96
[2021-04-08 06:40] LABS: BASOPHILS % (AUTO) 0.5 % (0.0-2.0); EOSINOPHILS # (AUTO) 0.3 K/uL (0.0-0.4); EOSINOPHILS % (AUTO) 2.8 % (0.0-4.0); HEMATOCRIT 31.1 % (36-48); HEMOGLOBIN 10.2 g/dL (12.0-16.0); LYMPHOCYTES # (AUTO) 0.8 K/uL (1.0-5.5); LYMPHOCYTES % (AUTO) 8.8 % (20.5-51.5); MEAN CORPUSCULAR HEMOGLOBIN 29 pg (27-31); MEAN CORPUSCULAR HGB CONC 33 % (32-36); MEAN CORPUSCULAR VOLUME 90 fL (79.0-98.0); MONOCYTES # (AUTO) 0.9 K/uL (0.0-1.0); MONOCYTES % (AUTO) 9.8 % (1.7-9.3); NEUTROPHILS # (AUTO) 7.3 K/uL (1.8-7.7); NEUTROPHILS % (AUTO) 78.1 % (40.0-70.0); PLATELET COUNT (AUTO) 193 K/uL (130-430); RED BLOOD CELL COUNT(AUTO) 3.47 MIL/uL (4.2-6.2); RED CELL DISTRIBUTION WIDTH 17.8 % (9.0-15.0); WHITE BLOOD COUNT (AUTO) 9.4 K/uL (4.8-10.8)
[2021-04-08 06:42] LABS: ANION GAP 10 (5-15); CALCIUM 8.2 mg/dL (8.4-11.0); CHLORIDE 100 mmol/L (98-107); GLUCOSE 119 mg/dL (70-99); POTASSIUM 4.8 mmol/L (3.5-5.1); SODIUM SERUM 134 mmol/L (136-145); UREA NITROGEN, BLOOD 42 mg/dL (8-21)
--- NOTE | 2021-04-08 07:15 | NUR ---
Handoff with NOE Silva. Luis Alejandre RN
[2021-04-08] MEDS: PANTOPRAZOLE SODIUM 40 MG/VIAL (PROTONIX) IVP SCH ×2 (08:31→21:13)
[2021-04-08] MEDS: ATORVASTATIN 10 MG TABLET PO SCH (08:32)
[2021-04-08] MEDS: glipiZIDE XL 5 MG TAB ( GLUCOTROL XL) PO SCH ×2 (08:32→21:13)
[2021-04-08] MEDS: GABAPENTIN 100 MG CAPSULE PO SCH ×3 (08:32→21:13)
[2021-04-08] MEDS: METOPROLOL SUCCINATE 50 MG TAB.SR.24H (TOPROL XL) PO SCH (08:32)
[2021-04-08] MEDS: BUMETANIDE 1 MG TABLET PO SCH (08:33)
[2021-04-08 09:00] VITALS: BP_SYST 99
--- NOTE | 2021-04-08 09:00 | NUR ---
Pt resting in bed at 0700, A+Ox4. Pt denies pain. IV noted- S/L. CSMW satisfactory. No headache, dizziness, chest pain, N+T. Pt obese/puffy, ?edema globally. Lungs diminished. SOBOE and dry cough noted. 5L HARM REDUCTION WORKER 96%. bs x4. void QS. No n+v. Will assess skin this afternoon. VSS. Med accepting. Pt eager to go home. Will continue to monitor.
--- NOTE | 2021-04-08 10:34 | NUR ---
Turned pt with PUMP TENDER and provided shelly care as well as under panis- superficial tears from ++moist from fold. Zinc cream applied. Will try to get order for clotramizole.
[2021-04-08 11:28] VITALS: BP_SYST 107
--- NOTE | 2021-04-08 11:28 | NUR ---
CONSULTATION PAGED/CALLED Reason for Consultation: CHF Person Who was Notified: ZA Consulting Physician: TAMMY Buildings Painter Specialty: Ordering Physician: DAMIAN
--- NOTE | 2021-04-08 12:39 | NUR ---
CONSULTATION PAGED/CALLED Reason for Consultation: RENAL FAILURE Person Who was Notified: ROSALEE Consulting Physician: OSWALD Development And Housing Director Specialty: NEPHRO Ordering Physician: DAMIAN
[2021-04-08 15:27] VITALS: BP_SYST 110
--- NOTE | 2021-04-08 18:08 | NUR ---
Pt resting in bed. No voiced concerns. Eating dinner. Bed in low position. call whelan in reach. Will continue to monitor.
[2021-04-08 20:18] VITALS: BP_SYST 78
[2021-04-09] VITALS (7 sets, daily range): BP systolic 94–156
[2021-04-09] MEDS: INSULIN REGULAR, HUMAN 100 UNITS/ML, 10 ML VIAL (humuLIN R) SUBCUT PRN ×3 (00:21→18:18)
--- NOTE | 2021-04-09 01:35 | NUR ---
LATE ENTRY: SPOKE WITH DOCTOR BENOIT, REGARDING STAFF REQUEST FOR PATIENT OCHOA DECLINES UNLESS JUSTIFICATION FOR PLACEMENT. STAFF REQUEST BLADDER SCAN. PREVOID RESIDUAL [id number]. NILSA LOPEZ RN
[2021-04-09 04:06] LABS: BILIRUBIN,URINE 1+ (NEGATIVE); CLARITY/URINE CLEAR (CLEAR); COLOR,URINE YELLOW (YELLOW); GLUCOSE,URINE NEGATIVE (NEGATIVE); KETONES,URINE NEGATIVE (NEGATIVE); PH,URINE 5.5 (5.0-8.0); PROTEIN URINE TRACE (NEGATIVE)
[2021-04-09 04:07] LABS: BLOOD, URINE TRACE (NEGATIVE); LEUKOCYTE ESTERASE ,URINE NEGATIVE (NEGATIVE); NITRITE, URINE NEGATIVE (NEGATIVE); UROBILINOGEN,URINE 0.2 (0.2-1.0)
[2021-04-09 04:37] LABS: BACTERIA,URINE MODERATE /HPF (None Seen); MUCUS,URINE None Seen /LPF (None Seen)
--- NOTE | 2021-04-09 06:19 | NUR ---
PATIENT NOTES SHE HAS A SENIOR ANDROID SOFTWARE ENGINEER THAT LIVES IN HER HOUSE. WOULD LIKE TO DISCHARGE TO HOME. NILSA LOPEZ RN
--- NOTE | 2021-04-09 07:08 | NUR ---
Handoff with NOE Silva. Luis Alejandre RN
--- NOTE | 2021-04-09 07:41 | NUR ---
PHYSICAL THERAPY CO-SIGN The Physical Therapy Progress Notes documented by Senior Revenue Accountant have been reviewed. Reviewed/Co-Signed by: Jesse Taylor Documentation Done by: LALY FISH PTA Addendum: 04/09/21 at 0742 by Jesse Taylor PT Amended: Links added.
[2021-04-09] MEDS: BUMETANIDE 1 MG TABLET PO SCH (08:11)
[2021-04-09] MEDS: PANTOPRAZOLE SODIUM 40 MG/VIAL (PROTONIX) IVP SCH (08:11)
[2021-04-09] MEDS: ATORVASTATIN 10 MG TABLET PO SCH (08:11)
[2021-04-09] MEDS: glipiZIDE XL 5 MG TAB ( GLUCOTROL XL) PO SCH (08:12)
[2021-04-09] MEDS: METOPROLOL SUCCINATE 50 MG TAB.SR.24H (TOPROL XL) PO SCH (08:12)
[2021-04-09] MEDS: GABAPENTIN 100 MG CAPSULE PO SCH (08:14)
--- NOTE | 2021-04-09 08:45 | NUR ---
Pt resting in bed at 0700, A+Ox4. Pt c/o pain- see eMAR. IV noted- S/L. CSMW satisfactory. No headache, dizziness, chest pain, N+T. Pt obese/puffy, ?edema globally. Lungs diminished. SOBOE and dry cough noted. 2L QUALITY INTERN 99%. bs x4. void- leung insitu. No n+v. Will assess skin this afternoon. VSS. Med accepting. Will continue to monitor.
[2021-04-09 09:09] LABS: BASOPHILS % (AUTO) 0.3 % (0.0-2.0); EOSINOPHILS # (AUTO) 0.2 K/uL (0.0-0.4); EOSINOPHILS % (AUTO) 2.9 % (0.0-4.0); HEMATOCRIT 32.1 % (36-48); HEMOGLOBIN 10.3 g/dL (12.0-16.0); LYMPHOCYTES # (AUTO) 0.7 K/uL (1.0-5.5); LYMPHOCYTES % (AUTO) 10.5 % (20.5-51.5); MEAN CORPUSCULAR HEMOGLOBIN 28 pg (27-31); MEAN CORPUSCULAR HGB CONC 32 % (32-36); MEAN CORPUSCULAR VOLUME 89 fL (79.0-98.0); MONOCYTES # (AUTO) 0.7 K/uL (0.0-1.0); MONOCYTES % (AUTO) 10.7 % (1.7-9.3); NEUTROPHILS # (AUTO) 5.2 K/uL (1.8-7.7); NEUTROPHILS % (AUTO) 75.6 % (40.0-70.0); PLATELET COUNT (AUTO) 172 K/uL (130-430); RED BLOOD CELL COUNT(AUTO) 3.61 MIL/uL (4.2-6.2); RED CELL DISTRIBUTION WIDTH 17.2 % (9.0-15.0)
[2021-04-09 09:44] LABS: WHITE BLOOD COUNT (AUTO) 6.9 K/uL (4.8-10.8)
[2021-04-09] MEDS: NACL 0.9% 1,000 ML IV SCH (12:04)
--- NOTE | 2021-04-09 18:01 | NUR ---
Pt resting in bed. No voiced concerns. Eating dinner. Bed in low position. call whelan in reach. Will continue to monitor.
[2021-04-09] MEDS: PANTOPRAZOLE SODIUM 40 MG TAB PO SCH (20:49)
[2021-04-10] MEDS: INSULIN REGULAR, HUMAN 100 UNITS/ML, 10 ML VIAL (humuLIN R) SUBCUT PRN (00:11)
[2021-04-10] MEDS: NACL 0.9% 1,000 ML IV SCH ×3 (03:13→23:12)
[2021-04-10 07:22] LABS: BASOPHILS % (AUTO) 0.3 % (0.0-2.0); EOSINOPHILS # (AUTO) 0.2 K/uL (0.0-0.4); EOSINOPHILS % (AUTO) 2.6 % (0.0-4.0); HEMOGLOBIN 9.8 g/dL (12.0-16.0); LYMPHOCYTES # (AUTO) 0.7 K/uL (1.0-5.5); LYMPHOCYTES % (AUTO) 9.5 % (20.5-51.5); MEAN CORPUSCULAR HEMOGLOBIN 29 pg (27-31); MEAN CORPUSCULAR HGB CONC 33 % (32-36); MEAN CORPUSCULAR VOLUME 89 fL (79.0-98.0); MONOCYTES # (AUTO) 0.7 K/uL (0.0-1.0); MONOCYTES % (AUTO) 10.5 % (1.7-9.3); NEUTROPHILS # (AUTO) 5.5 K/uL (1.8-7.7); NEUTROPHILS % (AUTO) 77.1 % (40.0-70.0); PLATELET COUNT (AUTO) 175 K/uL (130-430); RED BLOOD CELL COUNT(AUTO) 3.38 MIL/uL (4.2-6.2); WHITE BLOOD COUNT (AUTO) 7.1 K/uL (4.8-10.8)
--- NOTE | 2021-04-10 07:41 | NUR ---
PHYSICAL THERAPY CO-SIGN The Physical Therapy Progress Notes documented by Pool Player have been reviewed. Reviewed/Co-Signed by: Jesse Taylor Documentation Done by: LALY FISH PTA Addendum: 04/10/21 at 0741 by Jesse Taylor PT Amended: Links added.
[2021-04-10 08:14] LABS: ALANINE AMINOTRANSFERASE 17 U/L (12-78); ALBUMIN 2.3 g/dL (3.4-4.8); ANION GAP 10 (5-15); ASPARTATE AMINOTRANSFERASE 13 U/L (10-37); CALCIUM 8.2 mg/dL (8.4-11.0); CHLORIDE 101 mmol/L (98-107); CREATININE 2.25 mg/dL (0.55-1.30); GLUCOSE 133 mg/dL (70-99); POTASSIUM 4.9 mmol/L (3.5-5.1); SODIUM SERUM 134 mmol/L (136-145); TOTAL BILIRUBIN 0.6 mg/dL (0.0-1.0); UREA NITROGEN, BLOOD 58 mg/dL (8-21)
[2021-04-10] MEDS: METOPROLOL SUCCINATE 50 MG TAB.SR.24H (TOPROL XL) PO SCH (09:00)
[2021-04-10] MEDS: PANTOPRAZOLE SODIUM 40 MG TAB PO SCH ×2 (10:10→23:07)
[2021-04-10] MEDS: ATORVASTATIN 10 MG TABLET PO SCH (10:12)
[2021-04-10 11:24] VITALS: BP_SYST 100
[2021-04-10 15:15] VITALS: BP_SYST 114
--- NOTE | 2021-04-10 16:30 | NUR ---
Nutrition F/U Admitting Diagnosis GI bleed Reviewed Pertinent Medical/Surgical Hx Medical Record Patient Medical History Comment: HTN, DM, morbid obestiy, chronic venous stasis edema, atr fibr, PE, pacemaker per physician notes SARS-CoV-2 Ag (Rapid) Negative 04/[address] rounded to pt's room -- pt was asleep. Per primary RN, pt has not been eating much today. Per EMR review, PO intake average of 82% x9 meal records. Current diet may be providing excessive CHO and sodium. Pt may benefit from therapeutic dietary restrictions. Current Diet Order/Nutrition Support Regular x2 days Patient/Significant Other Unable To Verbalize Education Provided Not Indicated Pertinent Medications Reviewed Pertinent Labs H/H 9.8 L/30 L, BG 133 H, POC BG 194 H Height (Feet) 5 feet Height (Inches) 0.00 inches Weight (Pounds) 260 pounds -- stable since 04/06 Weight (Calculated Kilograms) 117.236188 kilograms Patient Weight 117.934 kg Body Mass Index 50.77 kg/m2 Usual Weight 260 lbs %UBW 100 %IBW 260 [place]/Adjusted Body Weight 100#/45 kg. 140#/64 kg Recent Weight Change No Weight Status Morbidly Obese Current % PO Fair (50-74%) Estimated Energy Expenditure (kcals/day) 8189-7160 (25-30 kcal/kg Adj IBW d/t morbid obesity) Estimated Protein Required (g/day) 51-64 (0.8-1 gm/kg Adj IBW d/t morbid obesity) Estimated Fluid Required (l/day) 1.6-2 (1 ml/kcal/day for maintenance) Problem/Etiology/Signs/Symptoms Malnutrition R/T morbid obesity AEB BMI: 51 kg/m2 and 260% of IBW. *ongoing Complicated GI function R/T possible development of ulcer AEB GI bleed upon admission, GI consult notes, and low H/H. *seemingly resolved Expected Outcomes/Goals - Monitor advancement of diet, appetite, and PO intakes w/ goal of pt meeting at least 50% of estimated nutritional needs, labs trending WNL, normal GI function, and skin integrity/wt maintenance Dietitian Recommendations * CCHO, 2 gm Na diet Follow Up Moderate Risk: F/U in 3-5 days
--- NOTE | 2021-04-10 16:35 | NUR ---
Dietitian Recommendations * CCHO, 2 gm Na diet LP, RD Please refer to Nutrition F/U for details.
[2021-04-10 18:35] VITALS: BP_SYST 114
[2021-04-10 20:00] VITALS: BP_SYST 106
[2021-04-10 20:40] VITALS: BP_SYST 106
--- NOTE | 2021-04-10 21:00 | NUR ---
pt awake, alert & oriented. not in distress. meds administered as ordered. turned and repositioned. new IV on right hand inserted due to prior iv lines infiltrated. new iv line intact and patent. ivf running. w/ f/c draining yellow colored urine adequate output. proper skin care provided. call light w/in reach.
[2021-04-11 00:37] VITALS: BP_SYST 105
[2021-04-11] MEDS: NACL 0.9% 1,000 ML IV SCH (06:03)
--- NOTE | 2021-04-11 06:54 | NUR ---
pt awake, alert & oriented. not in distress. turned and repositioned. ivf running. w/ f/c draining yellow colored urine adequate output. proper leung care provided. blood sugar checked as ordered and wnl. proper skin care provided. call light w/in reach.needs anticipated. endorsed accordingly to upcoming shift.
--- NOTE | 2021-04-11 07:04 | NUR ---
PHYSICAL THERAPY CO-SIGN The Physical Therapy Progress Notes documented by Marketing Manager Health Communications have been reviewed. Reviewed/Co-Signed by: Jesse Taylor Documentation Done by: LALY FISH PTA Addendum: 04/11/21 at 0705 by Jesse Taylor PT Amended: Links added.
[2021-04-11 07:15] LABS: BASOPHILS # (AUTO) 0.1 K/uL (0.0-0.2); BASOPHILS % (AUTO) 0.7 % (0.0-2.0); EOSINOPHILS # (AUTO) 0.1 K/uL (0.0-0.4); EOSINOPHILS % (AUTO) 1.9 % (0.0-4.0); HEMOGLOBIN 9.6 g/dL (12.0-16.0); LYMPHOCYTES # (AUTO) 1.1 K/uL (1.0-5.5); LYMPHOCYTES % (AUTO) 15.4 % (20.5-51.5); MEAN CORPUSCULAR HEMOGLOBIN 29 pg (27-31); MEAN CORPUSCULAR HGB CONC 33 % (32-36); MEAN CORPUSCULAR VOLUME 87 fL (79.0-98.0); MONOCYTES # (AUTO) 0.9 K/uL (0.0-1.0); MONOCYTES % (AUTO) 12.1 % (1.7-9.3); NEUTROPHILS # (AUTO) 5.1 K/uL (1.8-7.7); NEUTROPHILS % (AUTO) 69.9 % (40.0-70.0); PLATELET COUNT (AUTO) 206 K/uL (130-430); RED BLOOD CELL COUNT(AUTO) 3.35 MIL/uL (4.2-6.2); RED CELL DISTRIBUTION WIDTH 17.1 % (9.0-15.0); WHITE BLOOD COUNT (AUTO) 7.3 K/uL (4.8-10.8)
[2021-04-11 07:42] LABS: INR 1.1 (0.8-1.2); PROTHROMBIN TIME 11.5 SECS (9.5-12.5)
[2021-04-11 08:06] LABS: ALANINE AMINOTRANSFERASE 15 U/L (12-78); ALBUMIN 2.2 g/dL (3.4-4.8); ANION GAP 9 (5-15); ASPARTATE AMINOTRANSFERASE 15 U/L (10-37); CALCIUM 8.2 mg/dL (8.4-11.0); CHLORIDE 102 mmol/L (98-107); CREATININE 1.73 mg/dL (0.55-1.30); GLUCOSE 138 mg/dL (70-99); POTASSIUM 4.9 mmol/L (3.5-5.1); SODIUM SERUM 135 mmol/L (136-145); TOTAL BILIRUBIN 0.6 mg/dL (0.0-1.0); UREA NITROGEN, BLOOD 56 mg/dL (8-21)
[2021-04-11] MEDS: ATORVASTATIN 10 MG TABLET PO SCH (09:00)
[2021-04-11 10:37] LABS: BASOPHILS % (AUTO) 0.7 % (0.0-2.0); EOSINOPHILS # (AUTO) 0.1 K/uL (0.0-0.4); HEMATOCRIT 30.5 % (36-48); HEMOGLOBIN 10.2 g/dL (12.0-16.0); LYMPHOCYTES # (AUTO) 1.1 K/uL (1.0-5.5); LYMPHOCYTES % (AUTO) 14.7 % (20.5-51.5); MEAN CORPUSCULAR HEMOGLOBIN 29 pg (27-31); MEAN CORPUSCULAR HGB CONC 33 % (32-36); MEAN CORPUSCULAR VOLUME 87 fL (79.0-98.0); MONOCYTES # (AUTO) 0.9 K/uL (0.0-1.0); MONOCYTES % (AUTO) 12.8 % (1.7-9.3); NEUTROPHILS # (AUTO) 5.1 K/uL (1.8-7.7); NEUTROPHILS % (AUTO) 69.8 % (40.0-70.0); PLATELET COUNT (AUTO) 222 K/uL (130-430); RED BLOOD CELL COUNT(AUTO) 3.51 MIL/uL (4.2-6.2); WHITE BLOOD COUNT (AUTO) 7.3 K/uL (4.8-10.8)
[2021-04-11 10:50] LABS: ANION GAP 8 (5-15); CALCIUM 8.2 mg/dL (8.4-11.0); CHLORIDE 102 mmol/L (98-107); CREATININE 1.72 mg/dL (0.55-1.30); GLUCOSE 162 mg/dL (70-99); POTASSIUM 4.8 mmol/L (3.5-5.1); SODIUM SERUM 135 mmol/L (136-145); UREA NITROGEN, BLOOD 54 mg/dL (8-21)
[2021-04-11 10:57] LABS: ALANINE AMINOTRANSFERASE 15 U/L (12-78); ALBUMIN 2.3 g/dL (3.4-4.8); ASPARTATE AMINOTRANSFERASE 12 U/L (10-37); TOTAL BILIRUBIN 0.6 mg/dL (0.0-1.0)
[2021-04-11 12:57] VITALS: BP_SYST 129
--- NOTE | 2021-04-11 15:16 | NUR ---
LATA SALGADO REGARDING TRANSFER TO [facility]
--- NOTE | 2021-04-11 15:42 | NUR ---
ATTENDING MD DR SALGADO ORDRED ANOTHER HOSPITAL STAY FOR A DAY. [facility] WAS INFORMED TO CHANGE PICK IP STATUS TO WILL CALL. SPOKE TO CORY.
[2021-04-11 20:00] VITALS: BP_SYST 131
[2021-04-11] MEDS: PANTOPRAZOLE SODIUM 40 MG TAB PO SCH (20:45)
[2021-04-12] VITALS: BP_SYST 130
[2021-04-12] MEDS: NACL 0.9% 1,000 ML IV SCH ×3 (01:45→12:16)
--- NOTE | 2021-04-12 03:30 | NUR ---
PT AWAKE, ALERT & ORIENTED. VERBALLY RESPONSIVE. ABLE TO MAKE NEEDS KNOWN & FOLLOW SIMPLE COMMANDS. SATURATING >95% @ 2L/MIN VIA N/C. DENIES PAIN. TURNED AND REPOSITIONED Q2H. W/ IVF RUNNING. IVLINE PATENT & INTACT. PROPER INCONTINENCE CARE. X1 BM BROWN SMALL & PASTY. OFFERED ORAL FLUIDS WALT. KEPT CLEAN AND COMFORTABLE . NEEDS ANTICIPATED. CALL LIGHT W/IN REACH
[2021-04-12] MEDS: INSULIN REGULAR, HUMAN 100 UNITS/ML, 10 ML VIAL (humuLIN R) SUBCUT PRN ×3 (06:23→18:03)
[2021-04-12 07:41] LABS: BASOPHILS # (AUTO) 0.1 K/uL (0.0-0.2); BASOPHILS % (AUTO) 0.9 % (0.0-2.0); EOSINOPHILS # (AUTO) 0.2 K/uL (0.0-0.4); HEMATOCRIT 31.6 % (36-48); HEMOGLOBIN 10.3 g/dL (12.0-16.0); LYMPHOCYTES # (AUTO) 0.9 K/uL (1.0-5.5); LYMPHOCYTES % (AUTO) 16.5 % (20.5-51.5); MEAN CORPUSCULAR HEMOGLOBIN 29 pg (27-31); MEAN CORPUSCULAR HGB CONC 33 % (32-36); MEAN CORPUSCULAR VOLUME 88 fL (79.0-98.0); MONOCYTES # (AUTO) 0.6 K/uL (0.0-1.0); MONOCYTES % (AUTO) 10.6 % (1.7-9.3); NEUTROPHILS # (AUTO) 3.8 K/uL (1.8-7.7); PLATELET COUNT (AUTO) 211 K/uL (130-430); RED BLOOD CELL COUNT(AUTO) 3.59 MIL/uL (4.2-6.2); RED CELL DISTRIBUTION WIDTH 17.1 % (9.0-15.0); WHITE BLOOD COUNT (AUTO) 5.6 K/uL (4.8-10.8)
[2021-04-12 08:18] VITALS: BP_SYST 155
[2021-04-12 08:48] LABS: ALANINE AMINOTRANSFERASE 17 U/L (12-78); ALBUMIN 2.3 g/dL (3.4-4.8); ANION GAP 10 (5-15); ASPARTATE AMINOTRANSFERASE 14 U/L (10-37); CALCIUM 8.1 mg/dL (8.4-11.0); CHLORIDE 103 mmol/L (98-107); GLUCOSE 140 mg/dL (70-99); POTASSIUM 4.5 mmol/L (3.5-5.1); SODIUM SERUM 137 mmol/L (136-145); TOTAL BILIRUBIN 0.5 mg/dL (0.0-1.0); UREA NITROGEN, BLOOD 45 mg/dL (8-21)
[2021-04-12] MEDS: LACTULOSE 20 GM/30 ML UDC PO SCH ×2 (09:00→09:46)
[2021-04-12] MEDS: ATORVASTATIN 10 MG TABLET PO SCH (09:46)
[2021-04-12] MEDS: PANTOPRAZOLE SODIUM 40 MG TAB PO SCH ×2 (09:47→21:23)
[2021-04-12] MEDS: METOPROLOL SUCCINATE 50 MG TAB.SR.24H (TOPROL XL) PO SCH (09:48)
[2021-04-12 11:44] VITALS: BP_SYST 118
[2021-04-12] MEDS ORDERED: Lactulose PO (12:21)
[2021-04-12] MEDS ORDERED: PRO40 PO (12:21)
[2021-04-12 16:00] VITALS: BP_SYST 132
--- NOTE | 2021-04-12 19:30 | NUR ---
closing notes pt remained stable throughout shift. vitals stable not in acute distress. safety/fall precautions in place.pt cleaned had bmx1. pericare given. repositioned with pillow.kept comfortable. report given to oil heater operator nurse
[2021-04-12 20:00] VITALS: BP_SYST 124
[2021-04-13] VITALS: BP_SYST 130
[2021-04-13] MEDS: INSULIN REGULAR, HUMAN 100 UNITS/ML, 10 ML VIAL (humuLIN R) SUBCUT PRN ×4 (01:47→23:20)
[2021-04-13] MEDS: NACL 0.9% 1,000 ML IV SCH (06:05)
--- NOTE | 2021-04-13 07:10 | NUR ---
CLOSING NOTES PATIENT RESTING, NO SIGNS OF ACUTE RESPIRATORY DISTRESS AT THIS TIME. INCONTINENCE CARE PROVIDED THROUGHOUT SHIFT. FALL, ASPIRATION, SAFETY, AND ISOLATION PRECAUTIONS IN PLACE THROUGHOUT SHIFT. PATIENT USED CALL LIGHT THROUGHOUT SHIFT. WILL ENDORSE CARE TO ONCOMING SHIFT.
[2021-04-13 07:49] LABS: BASOPHILS % (AUTO) 0.3 % (0.0-2.0); EOSINOPHILS # (AUTO) 0.2 K/uL (0.0-0.4); EOSINOPHILS % (AUTO) 2.6 % (0.0-4.0); HEMATOCRIT 32.4 % (36-48); HEMOGLOBIN 10.4 g/dL (12.0-16.0); LYMPHOCYTES # (AUTO) 0.8 K/uL (1.0-5.5); LYMPHOCYTES % (AUTO) 10.8 % (20.5-51.5); MEAN CORPUSCULAR HEMOGLOBIN 28 pg (27-31); MEAN CORPUSCULAR HGB CONC 32 % (32-36); MEAN CORPUSCULAR VOLUME 89 fL (79.0-98.0); MONOCYTES # (AUTO) 0.7 K/uL (0.0-1.0); MONOCYTES % (AUTO) 10.3 % (1.7-9.3); NEUTROPHILS # (AUTO) 5.4 K/uL (1.8-7.7); PLATELET COUNT (AUTO) 234 K/uL (130-430); RED BLOOD CELL COUNT(AUTO) 3.66 MIL/uL (4.2-6.2); RED CELL DISTRIBUTION WIDTH 16.9 % (9.0-15.0); WHITE BLOOD COUNT (AUTO) 7.1 K/uL (4.8-10.8)
[2021-04-13 08:00] VITALS: BP_SYST 128
[2021-04-13 08:13] LABS: ALANINE AMINOTRANSFERASE 20 U/L (12-78); ALBUMIN 2.4 g/dL (3.4-4.8); ANION GAP 9 (5-15); ASPARTATE AMINOTRANSFERASE 19 U/L (10-37); CALCIUM 8.3 mg/dL (8.4-11.0); CHLORIDE 105 mmol/L (98-107); CREATININE 1.09 mg/dL (0.55-1.30); GLUCOSE 146 mg/dL (70-99); POTASSIUM 4.6 mmol/L (3.5-5.1); SODIUM SERUM 139 mmol/L (136-145); TOTAL BILIRUBIN 0.6 mg/dL (0.0-1.0); UREA NITROGEN, BLOOD 38 mg/dL (8-21)
[2021-04-13] MEDS: LACTULOSE 20 GM/30 ML UDC PO SCH (09:00)
[2021-04-13] MEDS: PANTOPRAZOLE SODIUM 40 MG TAB PO SCH ×2 (09:35→23:12)
[2021-04-13] MEDS: ATORVASTATIN 10 MG TABLET PO SCH (09:35)
[2021-04-13] MEDS: METOPROLOL SUCCINATE 50 MG TAB.SR.24H (TOPROL XL) PO SCH (09:36)
[2021-04-13 12:00] VITALS: BP_SYST 131
[2021-04-13 16:00] VITALS: BP_SYST 135
[2021-04-13 17:14] VITALS: BP_SYST 133
[2021-04-13 19:00] VITALS: BP_SYST 133
[2021-04-14] VITALS: BP_SYST 135
[2021-04-14 08:50] LABS: BASOPHILS # (AUTO) 0.1 K/uL (0.0-0.2); BASOPHILS % (AUTO) 0.8 % (0.0-2.0); EOSINOPHILS # (AUTO) 0.2 K/uL (0.0-0.4); EOSINOPHILS % (AUTO) 2.4 % (0.0-4.0); HEMATOCRIT 30.2 % (36-48); HEMOGLOBIN 9.7 g/dL (12.0-16.0); LYMPHOCYTES # (AUTO) 0.7 K/uL (1.0-5.5); LYMPHOCYTES % (AUTO) 11.3 % (20.5-51.5); MEAN CORPUSCULAR HEMOGLOBIN 28 pg (27-31); MEAN CORPUSCULAR HGB CONC 32 % (32-36); MEAN CORPUSCULAR VOLUME 88 fL (79.0-98.0); MONOCYTES # (AUTO) 0.5 K/uL (0.0-1.0); MONOCYTES % (AUTO) 8.1 % (1.7-9.3); NEUTROPHILS # (AUTO) 5.1 K/uL (1.8-7.7); NEUTROPHILS % (AUTO) 77.4 % (40.0-70.0); PLATELET COUNT (AUTO) 217 K/uL (130-430); RED BLOOD CELL COUNT(AUTO) 3.43 MIL/uL (4.2-6.2); RED CELL DISTRIBUTION WIDTH 16.6 % (9.0-15.0); WHITE BLOOD COUNT (AUTO) 6.5 K/uL (4.8-10.8)
[2021-04-14] MEDS: PANTOPRAZOLE SODIUM 40 MG TAB PO SCH (10:20)
[2021-04-14] MEDS: LACTULOSE 20 GM/30 ML UDC PO SCH (10:20)
[2021-04-14] MEDS: METOPROLOL SUCCINATE 50 MG TAB.SR.24H (TOPROL XL) PO SCH (10:22)
[2021-04-14] MEDS: ATORVASTATIN 10 MG TABLET PO SCH (10:22)
[2021-04-14 10:25] LABS: ALANINE AMINOTRANSFERASE 18 U/L (12-78); ALBUMIN 2.3 g/dL (3.4-4.8); ANION GAP 6 (5-15); ASPARTATE AMINOTRANSFERASE 16 U/L (10-37); CALCIUM 8.4 mg/dL (8.4-11.0); CHLORIDE 107 mmol/L (98-107); GLUCOSE 130 mg/dL (70-99); POTASSIUM 4.5 mmol/L (3.5-5.1); SODIUM SERUM 138 mmol/L (136-145); TOTAL BILIRUBIN 0.7 mg/dL (0.0-1.0); UREA NITROGEN, BLOOD 34 mg/dL (8-21)
[2021-04-14 12:00] VITALS: BP_SYST 161
--- NOTE | 2021-04-14 14:33 | NUR ---
[facility]/HCP CM MS JC HANNAH CALLED SNF TRANSFER INFO: [facility] RM 102 B; [facility] WILL CALL
--- NOTE | 2021-04-14 14:35 | NUR ---
[facility] WAS CALLED TO ACTIVATE WILL TRANSPORT STATUS : OBSTETRICIAN TIME IS 1700. SPOKE TO MALA
[2021-04-14 16:14] VITALS: BP_SYST 143
[2021-04-14 16:20] VITALS: BP_SYST 123
--- NOTE | 2021-04-14 16:48 | NUR ---
received on lying on bed, refused breakfast, with shortness of breath at times, on nasal cannula @2lpm, unable to do adls independently, morbid obese, seen by PT, TAYLA 3x , for discharged at [facility] at 5pm today. informed family member.
--- NOTE | 2021-04-14 17:51 | NUR ---
adriane edmondson informed by the transfer at 5:45pm, ambulance came, will tranfer with oxygen at 2lpm,
--- NOTE | 2021-04-14 18:08 | NUR ---
PHYSICAL THERAPY CO-SIGN The Physical Therapy Progress Notes documented by Pathology Assistant have been reviewed. Reviewed/Co-Signed by: Jesse Taylor Documentation Done by: LALY FISH PTA Addendum: 04/14/21 at 1809 by Jesse Taylor PT Amended: Links added.
--- NOTE | 2021-04-14 18:08 | NUR ---
PHYSICAL THERAPY CO-SIGN The Physical Therapy Progress Notes documented by Health And Wellness Instructor have been reviewed. Reviewed/Co-Signed by: Jesse Taylor Documentation Done by: LALY FISH PTA Addendum: 04/14/21 at 1809 by Jesse Taylor PT Amended: Links added.
--- NOTE | 2021-04-14 18:36 | NUR ---
transferred to [facility] via ambulance. at 06:35pm.
== END 2021-04-14 17:30 | DRG 377 ==
LOC: SED 13:19 → STU 22:23 → SMU 04-10 11:12
PROVIDERS: ADMIT Internal Medicine Hospice and Palliative Medicine; ATTEND Internal Medicine Hospice and Palliative Medicine
DX: K92.2 Gastrointestinal hemorrhage, unspecified (principal); N17.0 Acute kidney failure with tubular necrosis; E43 Unspecified severe protein-calorie malnutrition; G93.41 Metabolic encephalopathy; L97.929 Non-pressure chronic ulcer of unspecified part of left lower leg with unspecified severity; I48.20 Chronic atrial fibrillation, unspecified; Z68.43 Body mass index [BMI] 50.0-59.9, adult; K21.9 Gastro-esophageal reflux disease without esophagitis; E66.01 Morbid (severe) obesity due to excess calories; I25.10 Atherosclerotic heart disease of native coronary artery without angina pectoris; M19.90 Unspecified osteoarthritis, unspecified site; E78.5 Hyperlipidemia, unspecified; E78.00 Pure hypercholesterolemia, unspecified; D64.9 Anemia, unspecified; E11.65 Type 2 diabetes mellitus with hyperglycemia; E83.52 Hypercalcemia; I10 Essential (primary) hypertension; I87.8 Other specified disorders of veins; Z20.822 Contact with and (suspected) exposure to COVID-19; E88.09 Other disorders of plasma-protein metabolism, not elsewhere classified; Z79.01 Long term (current) use of anticoagulants; Z88.0 Allergy status to penicillin; Z88.8 Allergy status to other drugs, medicaments and biological substances; Z79.899 Other long term (current) drug therapy; Z86.711 Personal history of pulmonary embolism; Z95.0 Presence of cardiac pacemaker; Z90.49 Acquired absence of other specified parts of digestive tract; Z95.5 Presence of coronary angioplasty implant and graft; Z87.19 Personal history of other diseases of the digestive system
CPT/HCPCS: 36415; 71045; 71046-TC; 76770; 80048; 80053; 81000; 82140; 82962; 83605; 83735; 83880; 84100; 84443; 84484; 85025; 85610-TC; 87040-TC; 87081; 87086; 93005; 93306; 94760; 96374; 97110-GP; 97530-GP; 99285; C9113; G0378; J1200; J1815; J2270; J2405; J2765

== ENCOUNTER 2021-04-21 04:35 | Inpatient (IN) | payer OTHER, SELFPAY ==
[~2021-04-21] VITALS: Ht 167.6 cm; Wt 182.8 kg
[2021-04-21] VITALS (14 sets, daily range): BP systolic 70–144
[~2021-04-21 04:35] MED LIST changes: -BUME1TAB8 PO; +ETOMIDATE 20 MG/ 10 ML VIAL (AMIDATE) IVP ONE; -FURO-150 PO; -GLIP5TAB26 PO; -GLUXR500 PO; -INSU200I SQ; -ISOS30TA85 PO; +Lactulose PO; +SUCCINYLCHOLINE CHLORIDE 20 MG/ML(QUELICIN) IVP ONE; +TOPXL100 PO; +VECURONIUM BROMIDE 10 MG/VIAL (NORCURON) IV ONE
--- NOTE | 2021-04-21 04:35 | NUR ---
Placed in room 4 . Placed on monitor technician, blood pressure machine and pulse oximeter. To gown for exam. Side rails up.
--- NOTE | 2021-04-21 04:36 | NUR ---
ER at bedside examining patient.
[2021-04-21] MEDS ORDERED: IPRATROPIUM/ALBUTEROL SULFATE 3 ML AMPUL.NEB (DUONEB) INH ONE (04:45)
[2021-04-21] MEDS ORDERED: methylPREDNISolone SOD SUCC/PF 62.5 MG/ML VIAL IVP ONE (04:45)
[2021-04-21] MEDS ORDERED: ALBUTEROL SULFATE 0.083% 2.5 MG/3 ML VIAL.NEB INH ONE (04:45)
--- NOTE | 2021-04-21 04:55 | NUR ---
Patient not known to be of DNR status. Patient medicated with 20mg Etomidate and 100mg Succinylcholine mg of for sedation prior to placement of ET tube. Respiratory therapy at bedside prior to placement. Size 7.5 ET tube placed by Dr braswell. Cuff inflated with 10 cc air. Auscultation of breath sounds over bilateral chest wall. ET tube secured with reinier chaudhry. O2 sats 100% pulse ox. PCXR ordered to check tube placement.
[2021-04-21] MEDS ORDERED: INSULIN NPH 100 UNITS/ML 10 ML VIAL ONE (05:09)
[2021-04-21] MEDS ORDERED: FUROSEMIDE 100 MG/10 ML VIAL IVP ONE (05:15)
[2021-04-21] MEDS ORDERED: ETOMIDATE 20 MG/ 10 ML VIAL (AMIDATE) IVP ONE (05:15)
[2021-04-21] MEDS ORDERED: SUCCINYLCHOLINE CHLORIDE 20 MG/ML(QUELICIN) IVP ONE (05:15)
[2021-04-21] MEDS ORDERED: PROPOFOL DRIP 100 ML IV ONE (05:15)
--- NOTE | 2021-04-21 05:15 | NUR ---
Propofol drip started by Agnes LIU as ordered by DR Vega.
--- NOTE | 2021-04-21 05:30 | NUR ---
Propofol drip titrated up per protocol.
[2021-04-21] MEDS ORDERED: cefTRIAXone 1 GM IVPB PREMIX 50 ML IV ONE ×3 (05:41→06:43)
[2021-04-21 06:06] LABS: MEAN CORPUSCULAR HEMOGLOBIN 28 pg (27-31)
[2021-04-21 06:15] LABS: BASOPHILS % (AUTO) 0.3 % (0.0-2.0); EOSINOPHILS % (AUTO) 0.2 % (0.0-4.0); HEMATOCRIT 32.6 % (36-48); HEMOGLOBIN 10.1 g/dL (12.0-16.0); LYMPHOCYTES # (AUTO) 0.4 K/uL (1.0-5.5); LYMPHOCYTES % (AUTO) 3.6 % (20.5-51.5); MEAN CORPUSCULAR HGB CONC 31 % (32-36); MEAN CORPUSCULAR VOLUME 90 fL (79.0-98.0); MONOCYTES # (AUTO) 0.4 K/uL (0.0-1.0); MONOCYTES % (AUTO) 3.5 % (1.7-9.3); NEUTROPHILS # (AUTO) 10.9 K/uL (1.8-7.7); NEUTROPHILS % (AUTO) 92.4 % (40.0-70.0); PLATELET COUNT (AUTO) 242 K/uL (130-430); RED BLOOD CELL COUNT(AUTO) 3.64 MIL/uL (4.2-6.2); RED CELL DISTRIBUTION WIDTH 17.5 % (9.0-15.0); WHITE BLOOD COUNT (AUTO) 11.8 K/uL (4.8-10.8)
[2021-04-21 06:18] LABS: ANION GAP 13 (5-15); CALCIUM 8.3 mg/dL (8.4-11.0); CHLORIDE 99 mmol/L (98-107); CREATININE 2.22 mg/dL (0.55-1.30); GLUCOSE 163 mg/dL (70-99); POTASSIUM 5.7 mmol/L (3.5-5.1); SODIUM SERUM 134 mmol/L (136-145); UREA NITROGEN, BLOOD 51 mg/dL (8-21)
[2021-04-21 06:35] LABS: ALANINE AMINOTRANSFERASE 36 U/L (12-78); ALBUMIN 2.6 g/dL (3.4-4.8); ASPARTATE AMINOTRANSFERASE 33 U/L (10-37); THYROID STIMULATING HORMONE 1.67 uIu/mL (0.36-3.74); TOTAL BILIRUBIN 0.6 mg/dL (0.0-1.0)
[2021-04-21] MEDS ORDERED: ONDANSETRON HCL 4 MG/2 ML VIAL IVP PRN (07:00)
--- NOTE | 2021-04-21 07:05 | NUR ---
Care endorse to Charlene CRYSTAL
--- NOTE | 2021-04-21 07:32 | NUR ---
EDMD at bedside to incert a central line. No kits available in house, so EDMD chose to incert a 20G angio in rt IJ. Procedure completed without difficulty. IV site flushing well. Will hang abx now.
--- NOTE | 2021-04-21 07:40 | NUR ---
endorsed care to Kennedy LIU.
[2021-04-21] MEDS ORDERED: FURO-150 PO (08:04)
[2021-04-21] MEDS ORDERED: PRO40 PO (08:04)
[2021-04-21] MEDS ORDERED: BLOO-360 XX (08:04)
[2021-04-21] MEDS ORDERED: SSREG SUBCUT (08:04)
[2021-04-21] MEDS ORDERED: ISOS30TA85 PO (08:04)
[2021-04-21] MEDS ORDERED: NEU300 PO (08:04)
[2021-04-21] MEDS ORDERED: BUME1TAB8 PO (08:04)
[2021-04-21] MEDS ORDERED: METF-518 PO (08:04)
[2021-04-21] MEDS ORDERED: LIP10 PO (08:04)
[2021-04-21] MEDS ORDERED: GLIP5TAB26 PO (08:04)
[2021-04-21] MEDS ORDERED: DEXTROSE 50% JECT 50 ML DISP.SYRIN IVP PRN (09:00)
[2021-04-21] MEDS ORDERED: AZITHROMYCIN 500 MG in NS 250 ML IV SCH (09:30)
[2021-04-21] MEDS: D5/0.45 NS 1,000 ML IV SCH ×2 (09:40→17:22)
[2021-04-21] MEDS ORDERED: INSULIN REGULAR, HUMAN 10 UNITS/0.1 ML INJ ONE (10:16)
[2021-04-21] MEDS: INSULIN REGULAR, HUMAN 100 UNITS/ML, 10 ML VIAL (humuLIN R) SUBCUT PRN ×2 (10:27→18:34)
[2021-04-21] MEDS: DEXAMETHASONE SOD PHOSPHATE 10 MG/ML VIAL IVP SCH (10:45)
[2021-04-21] MEDS: ENOXAPARIN SODIUM 30 MG/0.3 ML SYRINGE SUBCUT SCH (10:50)
[2021-04-21] MEDS: LEVOFLOXACIN IN DEXTROSE 5 % 100 ML IV SCH (10:50)
[2021-04-21] MEDS ORDERED: PROPOFOL DRIP 100 ML IV PRN (12:15)
[2021-04-21] MEDS: IPRATROPIUM BROM 0.5 MG/2.5 ML VIAL.NEB (ATROVENT) INH SCH ×3 (12:40→15:54)
[2021-04-21] MEDS: ALBUTEROL SULFATE 0.083% 2.5 MG/3 ML VIAL.NEB INH SCH ×3 (12:40→15:54)
[2021-04-21] MEDS: PROPOFOL DRIP 100 ML IV PRN ×2 (13:53→17:03)
[2021-04-21] MEDS: FLUCONAZOLE 100 mg/ NS 50 ML IV SCH (13:53)
--- NOTE | 2021-04-21 15:29 | NUR ---
report LUIS F all questions answered//pt recieved sedated, in zero distress on vent/pt has family, notified by ER,pt vs stable, on vent pt following commands at this time, pt secretions thick, blood tinged/pt in zero distress//mw
[2021-04-21] MEDS ORDERED: SODIUM POLYSTYRENE SULFONATE 15 GM/60 ML UDBTL NG ONE (15:30)
[2021-04-22] VITALS (25 sets, daily range): BP systolic 86–134
[2021-04-22] MEDS: INSULIN REGULAR, HUMAN 100 UNITS/ML, 10 ML VIAL (humuLIN R) SUBCUT PRN ×3 (02:08→18:27)
[2021-04-22] MEDS: ALBUTEROL SULFATE 0.083% 2.5 MG/3 ML VIAL.NEB INH SCH ×2 (04:11→21:00)
[2021-04-22] MEDS: IPRATROPIUM BROM 0.5 MG/2.5 ML VIAL.NEB (ATROVENT) INH SCH ×2 (04:11→21:00)
--- NOTE | 2021-04-22 04:59 | NUR ---
Nutrition Update Peterson Scale 11 noted. Pt admitted for CHF, Pneumonia, Respiratory failure Diet: Vital AF 1.2 at 10ml/hr, FWF 50ml Q4H via NGT BMI: 65 kg/m2 RD to follow per nutrition care standards.
[2021-04-22 06:48] LABS: BASOPHILS # (AUTO) 0.2 K/uL (0.0-0.2); BASOPHILS % (AUTO) 1.4 % (0.0-2.0); EOSINOPHILS # (AUTO) 0.2 K/uL (0.0-0.4); EOSINOPHILS % (AUTO) 1.3 % (0.0-4.0); HEMOGLOBIN 9.1 g/dL (12.0-16.0); LYMPHOCYTES # (AUTO) 0.4 K/uL (1.0-5.5); LYMPHOCYTES % (AUTO) 2.2 % (20.5-51.5); MEAN CORPUSCULAR HEMOGLOBIN 29 pg (27-31); MEAN CORPUSCULAR HGB CONC 32 % (32-36); MEAN CORPUSCULAR VOLUME 89 fL (79.0-98.0); MONOCYTES # (AUTO) 0.8 K/uL (0.0-1.0); MONOCYTES % (AUTO) 4.4 % (1.7-9.3); NEUTROPHILS # (AUTO) 15.9 K/uL (1.8-7.7); NEUTROPHILS % (AUTO) 90.7 % (40.0-70.0); PLATELET COUNT (AUTO) 267 K/uL (130-430); RED BLOOD CELL COUNT(AUTO) 3.16 MIL/uL (4.2-6.2); RED CELL DISTRIBUTION WIDTH 17.2 % (9.0-15.0)
[2021-04-22 07:42] LABS: ALANINE AMINOTRANSFERASE 21 U/L (12-78); ANION GAP 11 (5-15); ASPARTATE AMINOTRANSFERASE 22 U/L (10-37); CALCIUM 7.9 mg/dL (8.4-11.0); CHLORIDE 100 mmol/L (98-107); CREATININE 1.84 mg/dL (0.55-1.30); GLUCOSE 301 mg/dL (70-99); PHOSPHORUS 3.2 mg/dL (2.7-4.5); POTASSIUM 5.1 mmol/L (3.5-5.1); SODIUM SERUM 133 mmol/L (136-145); TOTAL BILIRUBIN 0.5 mg/dL (0.0-1.0); UREA NITROGEN, BLOOD 47 mg/dL (8-21)
[2021-04-22 08:08] LABS: WHITE BLOOD COUNT (AUTO) 17.5 K/uL (4.8-10.8)
[2021-04-22] MEDS: DEXAMETHASONE SOD PHOSPHATE 10 MG/ML VIAL IVP SCH (10:20)
[2021-04-22] MEDS: cefTRIAXone 1 GM in D5W 50 ML IV SCH (10:20)
[2021-04-22] MEDS: LEVOFLOXACIN IN DEXTROSE 5 % 100 ML IV SCH (10:21)
[2021-04-22] MEDS: FLUCONAZOLE 100 mg/ NS 50 ML IV SCH (10:21)
[2021-04-22] MEDS: ENOXAPARIN SODIUM 30 MG/0.3 ML SYRINGE SUBCUT SCH (10:25)
[2021-04-22] MEDS ORDERED: VANCOMYCIN HCL 2,000 MG in NS 500 ML IV SCH (13:30)
[2021-04-22] MEDS: D5/0.45 NS 1,000 ML IV SCH (15:00)
--- NOTE | 2021-04-22 18:57 | NUR ---
PT CONDITION NO CHANGE TOTAL CARE FIO2 DOWN 60% WALT WELL REPORT GIVEN TO INCOMING NURSE IS AWARE PT CAN STARTED ON TF
[2021-04-22] MEDS: PROPOFOL DRIP 100 ML IV PRN (22:07)
[2021-04-23] VITALS (21 sets, daily range): BP systolic 112–150
[2021-04-23] MEDS: IPRATROPIUM BROM 0.5 MG/2.5 ML VIAL.NEB (ATROVENT) INH SCH ×4 (01:02→23:33)
[2021-04-23] MEDS: ALBUTEROL SULFATE 0.083% 2.5 MG/3 ML VIAL.NEB INH SCH ×4 (01:02→23:32)
[2021-04-23] MEDS: PROPOFOL DRIP 100 ML IV PRN ×3 (01:37→21:52)
[2021-04-23] MEDS: cefTRIAXone 1 GM in D5W 50 ML IV SCH (09:09)
[2021-04-23] MEDS: DEXAMETHASONE SOD PHOSPHATE 10 MG/ML VIAL IVP SCH (09:09)
[2021-04-23] MEDS: ENOXAPARIN SODIUM 30 MG/0.3 ML SYRINGE SUBCUT SCH (09:10)
[2021-04-23] MEDS: LEVOFLOXACIN IN DEXTROSE 5 % 100 ML IV SCH (09:11)
[2021-04-23] MEDS: FLUCONAZOLE 100 mg/ NS 50 ML IV SCH (09:50)
[2021-04-23] MEDS: INSULIN REGULAR, HUMAN 100 UNITS/ML, 10 ML VIAL (humuLIN R) SUBCUT PRN ×2 (12:50→18:35)
[2021-04-23] MEDS ORDERED: VANCOMYCIN HCL 1.25 GM/NS 250 ML IV SCH (14:00)
--- NOTE | 2021-04-23 18:58 | NUR ---
REPORT GIVEN TO INCOMING NURSE ALL QUESTIONS ANSWERED PT CONDITION REMAINS GUARDED WITHOUT INCIDENT IS AWARE PT IS ORDER FOR TUBEFEEDING AWAITING [place] PUMP CK NURSES FLOWSHEET FOR FURTHER INFO
[2021-04-23] MEDS: ASCORBIC ACID 500 MG TABLET PO SCH (21:38)
[2021-04-24] VITALS (18 sets, daily range): BP systolic 104–135
[2021-04-24] MEDS: INSULIN REGULAR, HUMAN 100 UNITS/ML, 10 ML VIAL (humuLIN R) SUBCUT PRN ×4 (01:06→18:49)
[2021-04-24] MEDS: PROPOFOL DRIP 100 ML IV PRN ×3 (01:09→12:34)
[2021-04-24] MEDS: ALBUTEROL SULFATE 0.083% 2.5 MG/3 ML VIAL.NEB INH SCH ×2 (03:47→08:04)
[2021-04-24] MEDS: IPRATROPIUM BROM 0.5 MG/2.5 ML VIAL.NEB (ATROVENT) INH SCH ×2 (03:47→08:04)
[2021-04-24 07:00] LABS: BASOPHILS % (AUTO) 0.1 % (0.0-2.0); HEMATOCRIT 27.4 % (36-48); HEMOGLOBIN 8.9 g/dL (12.0-16.0); LYMPHOCYTES # (AUTO) 0.4 K/uL (1.0-5.5); LYMPHOCYTES % (AUTO) 4.5 % (20.5-51.5); MEAN CORPUSCULAR HEMOGLOBIN 28 pg (27-31); MEAN CORPUSCULAR HGB CONC 33 % (32-36); MEAN CORPUSCULAR VOLUME 87 fL (79.0-98.0); MONOCYTES # (AUTO) 0.4 K/uL (0.0-1.0); MONOCYTES % (AUTO) 4.4 % (1.7-9.3); NEUTROPHILS # (AUTO) 7.9 K/uL (1.8-7.7); PLATELET COUNT (AUTO) 177 K/uL (130-430); RED BLOOD CELL COUNT(AUTO) 3.14 MIL/uL (4.2-6.2); RED CELL DISTRIBUTION WIDTH 17.4 % (9.0-15.0); WHITE BLOOD COUNT (AUTO) 8.6 K/uL (4.8-10.8)
[2021-04-24 07:42] LABS: ALANINE AMINOTRANSFERASE 22 U/L (12-78); ALBUMIN 1.5 g/dL (3.4-4.8); ANION GAP 9 (5-15); ASPARTATE AMINOTRANSFERASE 34 U/L (10-37); CHLORIDE 102 mmol/L (98-107); CREATININE 1.24 mg/dL (0.55-1.30); GLUCOSE 289 mg/dL (70-99); POTASSIUM 4.7 mmol/L (3.5-5.1); SODIUM SERUM 134 mmol/L (136-145); TOTAL BILIRUBIN 0.5 mg/dL (0.0-1.0); UREA NITROGEN, BLOOD 40 mg/dL (8-21)
[2021-04-24] MEDS ORDERED: ALBUTEROL MDI INHALATION 8 GM INH INH SCH ×2 (09:00→13:00)
[2021-04-24] MEDS: cefTRIAXone 1 GM in D5W 50 ML IV SCH (09:09)
[2021-04-24] MEDS: LEVOFLOXACIN IN DEXTROSE 5 % 100 ML IV SCH (09:12)
[2021-04-24] MEDS: DEXAMETHASONE SOD PHOSPHATE 10 MG/ML VIAL IVP SCH (09:36)
[2021-04-24] MEDS: FUROSEMIDE 20 MG/2 ML VIAL IVP SCH (09:37)
[2021-04-24] MEDS: ASCORBIC ACID 500 MG TABLET PO SCH ×2 (09:37→21:00)
[2021-04-24] MEDS: CHOLECALCIFEROL (VITAMIN D3) 5,000 UNIT TABLET PO SCH (09:37)
[2021-04-24] MEDS: ENOXAPARIN SODIUM 30 MG/0.3 ML SYRINGE SUBCUT SCH (09:38)
[2021-04-24] MEDS: FLUCONAZOLE 100 mg/ NS 50 ML IV SCH (10:06)
[2021-04-24] MEDS ORDERED: PANTOPRAZOLE SODIUM 40 MG/VIAL (PROTONIX) IVP ONE (11:00)
--- NOTE | 2021-04-24 11:08 | NUR ---
Called Dr. Zamora with a consult, Dr. Cason bronze plater at this time spoke with Betsy from doctors office
[2021-04-24 11:47] LABS: HEMATOCRIT 29.2 % (36-48); HEMOGLOBIN 9.4 g/dL (12.0-16.0)
[2021-04-24] MEDS ORDERED: HYDROCORTISONE ACETATE 1 SUPP (ANUSOL HC) RC ONE (12:45)
[2021-04-24] MEDS: D5/0.45 NS 1,000 ML IV SCH (14:00)
[2021-04-24] MEDS: NOREPINEPHRINE BITARTRATE 4 MG in D5W 246 ML IV PRN (14:45)
--- NOTE | 2021-04-24 15:18 | NUR ---
Dietitian Recommendations * Nepro at 35 ml/hr (goal rate), Free Water Flush: 50 ml Q4h (per physician) via NGT Provides: 1964 kcal/day, 68 gm protein/day, and 911 ml free water/day Meets: 81% of estimated caloric needs, 96% of lower end of estimated protein needs LP, RD Please refer to Nutrition Assessment for details. Addendum: 04/24/21 at [address] Amended: Links added.
--- NOTE | 2021-04-24 15:21 | NUR ---
Dietitian Recommendations * Nepro at 35 ml/hr (goal rate), Free Water Flush: 50 ml Q4h (per physician) via NGT Provides (w/ current propofol infusion rate): 1964 kcal/day, 68 gm protein/day, and 911 ml free water/day Meets: 81% of estimated caloric needs, 96% of lower end of estimated protein needs LP, RD Please refer to Nutrition Assessment for details. Addendum: 04/24/21 at [address] Amended: Links added.
[2021-04-24 17:53] LABS: HEMATOCRIT 30.3 % (36-48); HEMOGLOBIN 9.7 g/dL (12.0-16.0)
[2021-04-24] MEDS: HYDROCORTISONE ACETATE 1 SUPP (ANUSOL HC) RC SCH (21:00)
[2021-04-24] MEDS: PANTOPRAZOLE SODIUM 40 MG/VIAL (PROTONIX) IVP SCH (21:00)
[2021-04-25] VITALS (18 sets, daily range): BP systolic 100–140
[2021-04-25 00:20] LABS: HEMATOCRIT 28.5 % (36-48); HEMOGLOBIN 9.3 g/dL (12.0-16.0)
[2021-04-25] MEDS: INSULIN REGULAR, HUMAN 100 UNITS/ML, 10 ML VIAL (humuLIN R) SUBCUT PRN ×4 (02:04→17:32)
[2021-04-25] MEDS: ALBUTEROL MDI INHALATION 8 GM INH INH SCH ×5 (02:58→17:00)
[2021-04-25 06:29] LABS: ALANINE AMINOTRANSFERASE 21 U/L (12-78); ALBUMIN 1.5 g/dL (3.4-4.8); ANION GAP 10 (5-15); ASPARTATE AMINOTRANSFERASE 32 U/L (10-37); CALCIUM 8.1 mg/dL (8.4-11.0); CHLORIDE 102 mmol/L (98-107); CREATININE 1.13 mg/dL (0.55-1.30); GLUCOSE 293 mg/dL (70-99); POTASSIUM 4.4 mmol/L (3.5-5.1); SODIUM SERUM 134 mmol/L (136-145); TOTAL BILIRUBIN 0.4 mg/dL (0.0-1.0); UREA NITROGEN, BLOOD 39 mg/dL (8-21)
[2021-04-25 07:52] LABS: HEMATOCRIT 27.7 % (36-48); HEMOGLOBIN 9.4 g/dL (12.0-16.0); MEAN CORPUSCULAR HEMOGLOBIN 30 pg (27-31); MEAN CORPUSCULAR HGB CONC 34 % (32-36); MEAN CORPUSCULAR VOLUME 87 fL (79.0-98.0); PLATELET COUNT (AUTO) 250 K/uL (130-430); RED BLOOD CELL COUNT(AUTO) 3.18 MIL/uL (4.2-6.2); RED CELL DISTRIBUTION WIDTH 18.2 % (9.0-15.0)
[2021-04-25 08:12] LABS: WHITE BLOOD COUNT (AUTO) 12.9 K/uL (4.8-10.8)
[2021-04-25] MEDS: PROPOFOL DRIP 100 ML IV PRN ×2 (08:54→15:32)
[2021-04-25] MEDS: HYDROCORTISONE ACETATE 1 SUPP (ANUSOL HC) RC SCH ×2 (09:40→20:39)
[2021-04-25] MEDS: ASCORBIC ACID 500 MG TABLET PO SCH ×2 (09:40→20:39)
[2021-04-25] MEDS: CHOLECALCIFEROL (VITAMIN D3) 5,000 UNIT TABLET PO SCH (09:41)
[2021-04-25] MEDS: FUROSEMIDE 20 MG/2 ML VIAL IVP SCH (09:43)
[2021-04-25] MEDS: DEXAMETHASONE SOD PHOSPHATE 10 MG/ML VIAL IVP SCH (09:44)
[2021-04-25] MEDS: LEVOFLOXACIN IN DEXTROSE 5 % 100 ML IV SCH (09:50)
[2021-04-25] MEDS: FLUCONAZOLE 100 mg/ NS 50 ML IV SCH (09:51)
[2021-04-25] MEDS: cefTRIAXone 1 GM in D5W 50 ML IV SCH (09:52)
[2021-04-25 10:14] LABS: HEMOGLOBIN 9.8 g/dL (12.0-16.0)
[2021-04-25] MEDS: PANTOPRAZOLE SODIUM 40 MG/VIAL (PROTONIX) IVP SCH ×2 (10:31→20:40)
[2021-04-25] MEDS: VANCOMYCIN HCL 1,500 MG in NS 250 ML IV SCH (10:32)
[2021-04-25] MEDS: D5/0.45 NS 1,000 ML IV SCH ×2 (11:00)
[2021-04-25 12:05] LABS: ATYPICAL LYMPHOCYTES % 0 % (0-0); BAND % (MANUAL) 17 % (0-6); BASOPHILS % (MANUAL) 0 % (0-2); EOSINOPHILS % (MANUAL) 5 % (0-7); LYMPHOCYTES % (MANUAL) 8 % (20-46); MONOCYTES % (MANUAL) 5 % (0-11)
[2021-04-25] MEDS ORDERED: VANCOMYCIN HCL 1,500 MG in NS 250 ML IV SCH (14:00)
[2021-04-25 23:20] LABS: HEMATOCRIT 30.4 % (36-48); HEMOGLOBIN 9.8 g/dL (12.0-16.0)
[2021-04-26] VITALS (20 sets, daily range): BP systolic 85–139
[2021-04-26] MEDS: INSULIN REGULAR, HUMAN 100 UNITS/ML, 10 ML VIAL (humuLIN R) SUBCUT PRN ×4 (00:48→19:16)
[2021-04-26 07:29] LABS: HEMATOCRIT 28.8 % (36-48); HEMOGLOBIN 9.8 g/dL (12.0-16.0)
[2021-04-26] MEDS: D5/0.45 NS 1,000 ML IV SCH ×2 (09:25→17:06)
[2021-04-26] MEDS: PANTOPRAZOLE SODIUM 40 MG/VIAL (PROTONIX) IVP SCH ×2 (09:26→23:20)
[2021-04-26] MEDS: HYDROCORTISONE ACETATE 1 SUPP (ANUSOL HC) RC SCH ×2 (09:26→23:21)
[2021-04-26] MEDS: CHOLECALCIFEROL (VITAMIN D3) 5,000 UNIT TABLET PO SCH (09:26)
[2021-04-26] MEDS: FUROSEMIDE 20 MG/2 ML VIAL IVP SCH (09:26)
[2021-04-26] MEDS: ASCORBIC ACID 500 MG TABLET PO SCH ×2 (09:26→23:19)
[2021-04-26] MEDS: DEXAMETHASONE SOD PHOSPHATE 10 MG/ML VIAL IVP SCH (09:26)
[2021-04-26] MEDS: cefTRIAXone 1 GM in D5W 50 ML IV SCH (09:27)
[2021-04-26] MEDS: FLUCONAZOLE 100 mg/ NS 50 ML IV SCH (10:01)
[2021-04-26] MEDS: LEVOFLOXACIN IN DEXTROSE 5 % 100 ML IV SCH (10:01)
[2021-04-26 11:21] LABS: HEMATOCRIT 29.5 % (36-48); HEMOGLOBIN 9.5 g/dL (12.0-16.0)
[2021-04-26] MEDS: VANCOMYCIN HCL 1,500 MG in NS 250 ML IV SCH (13:05)
[2021-04-26] MEDS ORDERED: NS 250 ML IV ONE (17:15)
[2021-04-26 17:36] LABS: HEMATOCRIT 28.2 % (36-48); HEMOGLOBIN 9.1 g/dL (12.0-16.0)
[2021-04-26 23:10] LABS: HEMATOCRIT 33.3 % (36-48); HEMOGLOBIN 10.6 g/dL (12.0-16.0)
[2021-04-27] VITALS (22 sets, daily range): BP systolic 93–149
[2021-04-27 08:53] LABS: BASOPHILS % (AUTO) 0.3 % (0.0-2.0); EOSINOPHILS # (AUTO) 0.1 K/uL (0.0-0.4); EOSINOPHILS % (AUTO) 0.5 % (0.0-4.0); HEMATOCRIT 32.8 % (36-48); HEMOGLOBIN 10.4 g/dL (12.0-16.0); LYMPHOCYTES # (AUTO) 0.3 K/uL (1.0-5.5); LYMPHOCYTES % (AUTO) 2.6 % (20.5-51.5); MEAN CORPUSCULAR HEMOGLOBIN 28 pg (27-31); MEAN CORPUSCULAR HGB CONC 32 % (32-36); MEAN CORPUSCULAR VOLUME 87 fL (79.0-98.0); MONOCYTES # (AUTO) 0.3 K/uL (0.0-1.0); MONOCYTES % (AUTO) 2.4 % (1.7-9.3); NEUTROPHILS # (AUTO) 12.1 K/uL (1.8-7.7); NEUTROPHILS % (AUTO) 94.2 % (40.0-70.0); PLATELET COUNT (AUTO) 102 K/uL (130-430); RED BLOOD CELL COUNT(AUTO) 3.76 MIL/uL (4.2-6.2); RED CELL DISTRIBUTION WIDTH 17.3 % (9.0-15.0); WHITE BLOOD COUNT (AUTO) 12.8 K/uL (4.8-10.8)
[2021-04-27] MEDS: ALBUTEROL MDI INHALATION 8 GM INH INH SCH ×2 (09:00→13:00)
[2021-04-27] MEDS: INSULIN REGULAR, HUMAN 100 UNITS/ML, 10 ML VIAL (humuLIN R) SUBCUT PRN ×3 (09:16→19:03)
[2021-04-27] MEDS: cefTRIAXone 1 GM in D5W 50 ML IV SCH (09:42)
[2021-04-27] MEDS: CHOLECALCIFEROL (VITAMIN D3) 5,000 UNIT TABLET PO SCH (09:46)
[2021-04-27] MEDS: PANTOPRAZOLE SODIUM 40 MG/VIAL (PROTONIX) IVP SCH ×2 (09:46→21:00)
[2021-04-27] MEDS: FUROSEMIDE 20 MG/2 ML VIAL IVP SCH (09:46)
[2021-04-27] MEDS: D5/0.45 NS 1,000 ML IV SCH ×3 (09:51→22:00)
--- NOTE | 2021-04-27 10:09 | NUR ---
CALLED ICU S/W NOE KLEIN THAT PATIENT WAS OFF LEADS SHE WILL INFORM THE RN
[2021-04-27] MEDS: DEXAMETHASONE SOD PHOSPHATE 10 MG/ML VIAL IVP SCH (10:48)
[2021-04-27] MEDS: ASCORBIC ACID 500 MG TABLET PO SCH ×2 (10:49→21:00)
[2021-04-27] MEDS: LEVOFLOXACIN IN DEXTROSE 5 % 100 ML IV SCH (11:08)
[2021-04-27] MEDS: FLUCONAZOLE 100 mg/ NS 50 ML IV SCH (11:09)
[2021-04-27] MEDS: VANCOMYCIN HCL 1,500 MG in NS 250 ML IV SCH (11:11)
--- NOTE | 2021-04-27 14:00 | NUR ---
Svetlana Frias rounded and informed her of pts very low urine output. SHe indicated that the swelling is improving, she is getting wrinkly from the lasix and she will follow the creat, but she wasnot worried yet.
[2021-04-28] VITALS (23 sets, daily range): BP systolic 104–153
[2021-04-28] MEDS: INSULIN REGULAR, HUMAN 100 UNITS/ML, 10 ML VIAL (humuLIN R) SUBCUT PRN ×4 (02:00→18:57)
[2021-04-28 06:39] LABS: BASOPHILS % (AUTO) 0.1 % (0.0-2.0); EOSINOPHILS % (AUTO) 0.2 % (0.0-4.0); HEMOGLOBIN 8.6 g/dL (12.0-16.0); LYMPHOCYTES # (AUTO) 0.5 K/uL (1.0-5.5); LYMPHOCYTES % (AUTO) 5.2 % (20.5-51.5); MEAN CORPUSCULAR HEMOGLOBIN 28 pg (27-31); MEAN CORPUSCULAR HGB CONC 32 % (32-36); MEAN CORPUSCULAR VOLUME 86 fL (79.0-98.0); MONOCYTES # (AUTO) 0.3 K/uL (0.0-1.0); NEUTROPHILS # (AUTO) 9.2 K/uL (1.8-7.7); NEUTROPHILS % (AUTO) 91.5 % (40.0-70.0); PLATELET COUNT (AUTO) 73 K/uL (130-430); RED BLOOD CELL COUNT(AUTO) 3.13 MIL/uL (4.2-6.2); RED CELL DISTRIBUTION WIDTH 17.1 % (9.0-15.0); WHITE BLOOD COUNT (AUTO) 10.1 K/uL (4.8-10.8)
[2021-04-28 07:23] LABS: ALANINE AMINOTRANSFERASE 21 U/L (12-78); ALBUMIN 1.3 g/dL (3.4-4.8); ANION GAP 11 (5-15); ASPARTATE AMINOTRANSFERASE 33 U/L (10-37); CALCIUM 7.9 mg/dL (8.4-11.0); CHLORIDE 99 mmol/L (98-107); CREATININE 1.28 mg/dL (0.55-1.30); GLUCOSE 275 mg/dL (70-99); POTASSIUM 4.5 mmol/L (3.5-5.1); SODIUM SERUM 132 mmol/L (136-145); TOTAL BILIRUBIN 0.3 mg/dL (0.0-1.0); UREA NITROGEN, BLOOD 49 mg/dL (8-21)
[2021-04-28] MEDS: HYDROCORTISONE ACETATE 1 SUPP (ANUSOL HC) RC SCH ×2 (11:41→22:34)
[2021-04-28] MEDS: D5/0.45 NS 1,000 ML IV SCH ×2 (11:44→18:00)
[2021-04-28] MEDS: cefTRIAXone 1 GM in D5W 50 ML IV SCH (11:45)
[2021-04-28] MEDS: DEXAMETHASONE SOD PHOSPHATE 10 MG/ML VIAL IVP SCH (11:45)
[2021-04-28] MEDS: PANTOPRAZOLE SODIUM 40 MG/VIAL (PROTONIX) IVP SCH ×2 (11:46→22:32)
[2021-04-28] MEDS: ASCORBIC ACID 500 MG TABLET PO SCH ×2 (11:46→22:34)
[2021-04-28] MEDS: FUROSEMIDE 20 MG/2 ML VIAL IVP SCH (11:47)
[2021-04-28] MEDS: CHOLECALCIFEROL (VITAMIN D3) 5,000 UNIT TABLET PO SCH (11:48)
[2021-04-28] MEDS: FLUCONAZOLE 100 mg/ NS 50 ML IV SCH (11:49)
[2021-04-28] MEDS: PROPOFOL DRIP 100 ML IV PRN (11:54)
[2021-04-28] MEDS: LEVOFLOXACIN IN DEXTROSE 5 % 100 ML IV SCH (11:55)
[2021-04-28] MEDS: VANCOMYCIN HCL 1,500 MG in NS 250 ML IV SCH (11:55)
--- NOTE | 2021-04-28 19:14 | NUR ---
Notified Dr Vegas pt had low urine output all through shift despite Lasix 20mg IVP given earlier and order received Lasix 20mg ivp x1 tonight
[2021-04-28] MEDS ORDERED: FUROSEMIDE 20 MG/2 ML VIAL IVP ONE (19:15)
--- NOTE | 2021-04-28 19:21 | NUR ---
Updates given to ZACH RN at the bedside pt vitals signs stable sedated on Propofol drip oxygenation via ventilator O2 sat 98%, also mentioned in report pt low urine output and order received for Lasix 20mg ivp x1 to be given tonight.
[2021-04-28] MEDS: ALBUTEROL MDI INHALATION 8 GM INH INH SCH (21:55)
[2021-04-29] VITALS (21 sets, daily range): BP systolic 96–151
[2021-04-29] MEDS: PANTOPRAZOLE SODIUM 40 MG/VIAL (PROTONIX) IVP SCH ×2 (00:29→21:06)
[2021-04-29] MEDS: INSULIN REGULAR, HUMAN 100 UNITS/ML, 10 ML VIAL (humuLIN R) SUBCUT PRN ×4 (00:37→18:24)
[2021-04-29 06:01] LABS: BASOPHILS % (AUTO) 0.3 % (0.0-2.0); EOSINOPHILS % (AUTO) 0.2 % (0.0-4.0); HEMATOCRIT 31.2 % (36-48); HEMOGLOBIN 10.1 g/dL (12.0-16.0); LYMPHOCYTES # (AUTO) 0.4 K/uL (1.0-5.5); LYMPHOCYTES % (AUTO) 4.8 % (20.5-51.5); MEAN CORPUSCULAR HEMOGLOBIN 28 pg (27-31); MEAN CORPUSCULAR HGB CONC 32 % (32-36); MEAN CORPUSCULAR VOLUME 86 fL (79.0-98.0); MONOCYTES # (AUTO) 0.3 K/uL (0.0-1.0); MONOCYTES % (AUTO) 3.1 % (1.7-9.3); NEUTROPHILS # (AUTO) 7.9 K/uL (1.8-7.7); NEUTROPHILS % (AUTO) 91.6 % (40.0-70.0); PLATELET COUNT (AUTO) 101 K/uL (130-430); RED BLOOD CELL COUNT(AUTO) 3.65 MIL/uL (4.2-6.2); RED CELL DISTRIBUTION WIDTH 17.1 % (9.0-15.0); WHITE BLOOD COUNT (AUTO) 8.6 K/uL (4.8-10.8)
[2021-04-29 06:54] LABS: ALANINE AMINOTRANSFERASE 20 U/L (12-78); ALBUMIN 1.2 g/dL (3.4-4.8); ANION GAP 13 (5-15); ASPARTATE AMINOTRANSFERASE 35 U/L (10-37); CALCIUM 7.4 mg/dL (8.4-11.0); CHLORIDE 99 mmol/L (98-107); CREATININE 1.62 mg/dL (0.55-1.30); GLUCOSE 302 mg/dL (70-99); POTASSIUM 4.5 mmol/L (3.5-5.1); SODIUM SERUM 132 mmol/L (136-145); TOTAL BILIRUBIN 0.3 mg/dL (0.0-1.0); UREA NITROGEN, BLOOD 61 mg/dL (8-21)
--- NOTE | 2021-04-29 07:13 | NUR ---
Assumed pt care report received from Giovanna RN met pt sedated on Propofol vitals signs stable afebrile no sign of distress noted, ETT to Ventilator Pressure control rate 24 Fio2 90% tolerating well O2 sat 94% oral, perineal care done and repositioned for comfort.
--- NOTE | 2021-04-29 08:10 | NUR ---
pt's low body temperature 95.4F orally so bear hugger for comfort and to improve pt's temp
[2021-04-29] MEDS: ALBUTEROL MDI INHALATION 8 GM INH INH SCH ×4 (09:07→21:13)
--- NOTE | 2021-04-29 09:15 | NUR ---
Dr Vegas rounds at the bedside updates on pt's low urine output order received NS 0.9% 500ML bolus, Albumin 100cc and Lasix 40mg ivp x1 to induce urine.
[2021-04-29] MEDS ORDERED: ALBUMIN HUMAN 25% 100 ML IV ONE (09:30)
[2021-04-29] MEDS ORDERED: FUROSEMIDE 40 MG/4 ML VIAL IVP ONE (09:30)
[2021-04-29] MEDS: D5/0.45 NS 1,000 ML IV SCH ×2 (10:43→13:27)
[2021-04-29] MEDS: cefTRIAXone 1 GM in D5W 50 ML IV SCH (10:44)
[2021-04-29] MEDS: LEVOFLOXACIN IN DEXTROSE 5 % 100 ML IV SCH (10:44)
[2021-04-29] MEDS: ASCORBIC ACID 500 MG TABLET PO SCH ×2 (10:45→21:09)
[2021-04-29] MEDS: CHOLECALCIFEROL (VITAMIN D3) 5,000 UNIT TABLET PO SCH (10:45)
[2021-04-29] MEDS: VANCOMYCIN HCL 1,500 MG in NS 250 ML IV SCH (10:45)
[2021-04-29] MEDS ORDERED: NS 500 ML IV ONE (10:45)
[2021-04-29] MEDS: HYDROCORTISONE ACETATE 1 SUPP (ANUSOL HC) RC SCH ×3 (10:46→21:08)
[2021-04-29] MEDS: DEXAMETHASONE SOD PHOSPHATE 10 MG/ML VIAL IVP SCH (11:07)
[2021-04-29] MEDS: FLUCONAZOLE 100 mg/ NS 50 ML IV SCH (11:07)
--- NOTE | 2021-04-29 11:45 | NUR ---
Nutrition F/U Admitting Diagnosis CHF, pneumonia, respiratory failure Reviewed Pertinent Medical/Surgical Hx Medical Record Other Medical History Comment: COPD, CHF, DM, renal failure per physician notes Pt also found w/ sepsis, COVID-19 pneumonia, acute hypoxic respiratory failure, and COPD per physician notes SARS-CoV-2 Ag (Rapid) Positive 04/21 Subjective Information: Pt remains in ICU, intubated on vent. RD bedside visit was deferred d/t COVID isolation. RDs/w pt's primary who reported no issues overnight and that EN is infusing as ordered. RN Per EMR review, stool output 04/26 130ml, abdomen is distended w/ active bowel sounds. Peterson scale: 10, erythema to right sacrum abd 3+ pitting bilateral generalized edema noted per fisheries management biologist. EN rate: 35 ml (04/28); GRV: 0ml (04/28). Current EN meets <70% of estimated calorie needs and an increase in EN infusion rate is warranted. Current Diet Order/Nutrition Support: Nepro at 35ml/hr, FWF 50ml Q4H via NGT x 5 days Pertinent Medications VIT D3, lasix, VIT C, propofol at 10.968 ml/hr (289 kcal/day) Pertinent Labs: reviewed. Height (Feet) 5 feet Height (Inches) 6.00 inches Weight (Pounds) 403 pounds (stable since 04/24) Weight (Ounces) 0.0 oz Weight (Calculated Kilograms) 182.075843 kilograms Patient Weight 182.798 kg 182.798 kg Body Mass Index 65.04 kg/m2 65.04 kg/m2 %IBW 310 [place]/Adjusted Body Weight 130#/59 kg.198#/90 kg NEW Estimated Energy Expenditure (kcals/day) 2676 (PSU 2009 d/t critical illness, intubated; Ve: 14.8; Tmax: 37.1'C) Estimated Protein Required (g/day) 71-89 (1.2-1.5 gm/kg IBW d/t renal failure, sepsis) Estimated Fluid Required (l/day) Per physician d/t CHF, renal failure Problem/Etiology/Signs/Symptoms Suboptimal EN support R/T metabolic demands AEB current EN support meets <80% of estimated nutritional. (*ongoing) Altered nutrition-related labs R/T endocrine and renal dysfunction AEB abnormal Na, BUn, BG, POC BG, and ALP lab values. (*ongoing) Expected Outcomes/Goals - Monitor tolerance to EN support w/ goal of pt meeting at least 80% of estimated nutritional requirements, labs trending WNL, normal GI function, and skin integrity/wt maintenance Dietitian Recommendations * Recommend: increase EN infusion rate to better meet estimated needs. * Nepro at 50 ml/hr (new goal rate), Free Water Flush: 50 ml Q4h (per physician) via NGT Provides (w/ propofol infusion): 2449 kcal/day, 97 gm protein/day, and 872 ml free water/day Meets: 91% of estimated caloric needs, 108% of lower end of estimated protein needs Follow Up High Risk: F/U in 2-3days
--- NOTE | 2021-04-29 14:37 | NUR ---
Spoke to patient's sons Osman [phone] and Aide [phone] on a conference call. The decision maker is Aide, the older son. I explained to the 2 sons that Aide will be called if decisions need to be made
--- NOTE | 2021-04-29 15:57 | NUR ---
PAGED FOR ORDERS DIALED: [phone] SPOKE TO: ALAYNA
--- NOTE | 2021-04-29 16:00 | NUR ---
RT NOTES Per titration order, FIO2 to 0.80. RN notified.
--- NOTE | 2021-04-29 16:13 | NUR ---
Complete CHG bath with linen changed oral care and skin care. There was no urine output, attempted to flush the leung met resistance, old one taken out,new one reinserted successfully, took three nurses due to pt's physical condition lots of urine output on the pad and [address] Vegas updated and no new order received.
--- NOTE | 2021-04-29 19:31 | NUR ---
Change of shift report to MARTY RN updates at the bedside vitals signs stable no changes in pt's condition and care plan
[2021-04-29] MEDS: PROPOFOL DRIP 100 ML IV PRN (21:14)
[2021-04-30] VITALS (24 sets, daily range): BP systolic 89–134
[2021-04-30] MEDS: INSULIN REGULAR, HUMAN 100 UNITS/ML, 10 ML VIAL (humuLIN R) SUBCUT PRN ×5 (02:11→23:50)
[2021-04-30] MEDS: PROPOFOL DRIP 100 ML IV PRN ×3 (06:33→21:20)
[2021-04-30] MEDS: D5/0.45 NS 1,000 ML IV SCH ×3 (06:35→17:51)
[2021-04-30 07:10] LABS: BASOPHILS % (AUTO) 0.5 % (0.0-2.0); EOSINOPHILS # (AUTO) 0.3 K/uL (0.0-0.4); EOSINOPHILS % (AUTO) 2.8 % (0.0-4.0); HEMATOCRIT 24.9 % (36-48); LYMPHOCYTES # (AUTO) 0.5 K/uL (1.0-5.5); LYMPHOCYTES % (AUTO) 4.6 % (20.5-51.5); MEAN CORPUSCULAR HEMOGLOBIN 28 pg (27-31); MEAN CORPUSCULAR HGB CONC 32 % (32-36); MEAN CORPUSCULAR VOLUME 87 fL (79.0-98.0); MONOCYTES # (AUTO) 0.6 K/uL (0.0-1.0); MONOCYTES % (AUTO) 5.5 % (1.7-9.3); NEUTROPHILS # (AUTO) 8.9 K/uL (1.8-7.7); NEUTROPHILS % (AUTO) 86.6 % (40.0-70.0); PLATELET COUNT (AUTO) 153 K/uL (130-430); RED BLOOD CELL COUNT(AUTO) 2.86 MIL/uL (4.2-6.2); RED CELL DISTRIBUTION WIDTH 17.2 % (9.0-15.0); WHITE BLOOD COUNT (AUTO) 10.3 K/uL (4.8-10.8)
--- NOTE | 2021-04-30 07:40 | NUR ---
Assumed pt care report received from MARTY LIU met pt sedated on Propofol drip, vitals signs stable, ETT to vent pressure control FIO2 80% tolerating well O2 sat 95%, withdraws to pain, facial grimacing noted during oral care and suction. OGT placement checked, verified by auscultation very minimal residual < 10 tolerating well, leung and rectal tube to gravity, will continue to monitor and treat as per care plan.
[2021-04-30 07:54] LABS: ALANINE AMINOTRANSFERASE 17 U/L (12-78); ALBUMIN 1.4 g/dL (3.4-4.8); ANION GAP 12 (5-15); ASPARTATE AMINOTRANSFERASE 23 U/L (10-37); CALCIUM 7.1 mg/dL (8.4-11.0); CHLORIDE 98 mmol/L (98-107); CREATININE 1.92 mg/dL (0.55-1.30); GLUCOSE 299 mg/dL (70-99); POTASSIUM 4.8 mmol/L (3.5-5.1); SODIUM SERUM 129 mmol/L (136-145); TOTAL BILIRUBIN 0.3 mg/dL (0.0-1.0); UREA NITROGEN, BLOOD 67 mg/dL (8-21)
[2021-04-30] MEDS: cefTRIAXone 1 GM in D5W 50 ML IV SCH (09:00)
[2021-04-30] MEDS: ALBUTEROL MDI INHALATION 8 GM INH INH SCH ×2 (09:13→11:53)
--- NOTE | 2021-04-30 09:30 | NUR ---
Updates Dr Vegas on pt's elevated blood sugar trends >300 order received to add Lantus 12units SQ daily.
[2021-04-30] MEDS: PANTOPRAZOLE SODIUM 40 MG/VIAL (PROTONIX) IVP SCH ×2 (10:10→21:14)
[2021-04-30] MEDS: ASCORBIC ACID 500 MG TABLET PO SCH ×2 (10:10→21:14)
[2021-04-30] MEDS: HYDROCORTISONE ACETATE 1 SUPP (ANUSOL HC) RC SCH ×2 (10:11→21:15)
[2021-04-30] MEDS: CHOLECALCIFEROL (VITAMIN D3) 5,000 UNIT TABLET PO SCH (10:11)
[2021-04-30] MEDS: DEXAMETHASONE SOD PHOSPHATE 10 MG/ML VIAL IVP SCH (10:11)
--- NOTE | 2021-04-30 10:56 | NUR ---
INFORMED MAURICE STANTON PT IS OFF MONITOR, 2ND CALL.
[2021-04-30] MEDS: INSULIN GLARGINE 100 UNITS/ML 10 ML VIAL SUBCUT SCH (11:46)
--- NOTE | 2021-04-30 12:45 | NUR ---
Complete CHG bed bath, oral, skin, perineal care, repositioned tolerated well with minimal discomfort. Also picture taken right cheek buttocks necrotic deep tissue injury unstageable, stage 2 on the coccyx and left buttocks also stage 2.
--- NOTE | 2021-04-30 15:50 | NUR ---
Pt's son called Aide [phone] updates over the phone on pt's condition still critically unstable on ventilator sedated vitals signs stable.
--- NOTE | 2021-04-30 19:42 | NUR ---
Change of shift report to Darío LIU for continuity of care as at this time pt tolerating all care and treatments vitals signs stable afebrile no changes in care plan and pt's condition
[2021-05-01] VITALS (25 sets, daily range): BP systolic 83–141
[2021-05-01] MEDS: PROPOFOL DRIP 100 ML IV PRN ×3 (03:12→17:49)
[2021-05-01] MEDS: INSULIN REGULAR, HUMAN 100 UNITS/ML, 10 ML VIAL (humuLIN R) SUBCUT PRN ×3 (05:43→17:47)
--- NOTE | 2021-05-01 07:30 | NUR ---
Assumed pt care report received from Selina LIU met pt eyes open Propofol @50mcgs not fully sedated vitals signs stable ETT to vent Fio2 90% O2 sat 95%,oral care, suction IV site intact, ogt checked minimal residual <10cc, leung and rectal tube to gravity will continue to monitor and treat as per care plan
--- NOTE | 2021-05-01 07:40 | NUR ---
RCV'D PT ON MECHANICAL VENTILATOR INTUBATED WITH SETTINGS PC 26 RR 24 PEEP 10 FIO2 80%. TUBE IN PLACE AND SECURED. PT IN SUPINE POSITION. VENT CONNECTED TO RED OUTLET. ALARMS AUDIBLE. AMBU BAG AT BEDSIDE. NO SOB OR DISTRESS NOTED. WILL CONTINUE TO MONITOR PATIENT.
[2021-05-01 07:43] LABS: ALANINE AMINOTRANSFERASE 21 U/L (12-78); ALBUMIN 1.5 g/dL (3.4-4.8); ANION GAP 13 (5-15); ASPARTATE AMINOTRANSFERASE 15 U/L (10-37); CALCIUM 7.3 mg/dL (8.4-11.0); CHLORIDE 98 mmol/L (98-107); CREATININE 2.05 mg/dL (0.55-1.30); GLUCOSE 335 mg/dL (70-99); POTASSIUM 4.1 mmol/L (3.5-5.1); SODIUM SERUM 130 mmol/L (136-145); TOTAL BILIRUBIN 0.3 mg/dL (0.0-1.0); UREA NITROGEN, BLOOD 78 mg/dL (8-21)
--- NOTE | 2021-05-01 09:26 | NUR ---
Dr Vegas's rounds at the bedside updates on the chemistry inbalance electrolytes and fluids. MD said will treats and change fluids.
[2021-05-01] MEDS ORDERED: FUROSEMIDE 20 MG/2 ML VIAL IVP ONE (09:30)
--- NOTE | 2021-05-01 09:47 | NUR ---
Spoke to Dr Corona to updates pt's son/family about her condition.
--- NOTE | 2021-05-01 09:49 | NUR ---
Updates Dr Engel about pt's ABG PH 7.29 PCO2 36 PO2 81.6 HCO3 17.5 no new order received as at this time.
[2021-05-01] MEDS: NACL 0.9% 1,000 ML IV SCH (10:17)
[2021-05-01] MEDS: cefTRIAXone 1 GM in D5W 50 ML IV SCH (10:19)
[2021-05-01] MEDS: HYDROCORTISONE ACETATE 1 SUPP (ANUSOL HC) RC SCH ×2 (10:20→23:22)
[2021-05-01] MEDS: PANTOPRAZOLE SODIUM 40 MG/VIAL (PROTONIX) IVP SCH ×2 (10:20→23:17)
[2021-05-01] MEDS: DEXAMETHASONE SOD PHOSPHATE 10 MG/ML VIAL IVP SCH (10:21)
[2021-05-01] MEDS: ASCORBIC ACID 500 MG TABLET PO SCH ×2 (10:21→23:23)
[2021-05-01] MEDS: CHOLECALCIFEROL (VITAMIN D3) 5,000 UNIT TABLET PO SCH (10:22)
[2021-05-01] MEDS: INSULIN GLARGINE 100 UNITS/ML 10 ML VIAL SUBCUT SCH (10:49)
--- NOTE | 2021-05-01 10:52 | NUR ---
Dr Engel at the bedside updates on pt's condition MD decrease FIO2 to 70% and order received Artificial tears.
[2021-05-01] MEDS ORDERED: CALCIUM CHLORIDE 1 GM in NS 100 ML IV ONE (11:00)
[2021-05-01] MEDS: PEG 400/HYPROMELLOSE/GLYCERIN 15 ML DROPS OP SCH ×3 (14:55→23:18)
--- NOTE | 2021-05-01 16:30 | NUR ---
Complete CHG bath, linen changed, oral, leung , wound care and pt repositioned on the right side tolerated well vitals signs stable
--- NOTE | 2021-05-01 19:31 | NUR ---
Change of shift report to Ebony RN for continuity of care as at this time vitals signs stable, no changes in condition and care plan.
[2021-05-01] MEDS: ALBUTEROL MDI INHALATION 8 GM INH INH SCH (21:18)
[2021-05-02] VITALS (27 sets, daily range): BP systolic 81–137
[2021-05-02] MEDS: NACL 0.9% 1,000 ML IV SCH ×2 (06:16→10:46)
[2021-05-02] MEDS ORDERED: NOREPINEPHRINE 4 MG/4 ML VIAL IV ONE (06:42)
[2021-05-02 06:45] LABS: BASOPHILS % (AUTO) 0.2 % (0.0-2.0); EOSINOPHILS % (AUTO) 0.5 % (0.0-4.0); HEMATOCRIT 26.7 % (36-48); HEMOGLOBIN 8.7 g/dL (12.0-16.0); LYMPHOCYTES # (AUTO) 0.5 K/uL (1.0-5.5); LYMPHOCYTES % (AUTO) 4.5 % (20.5-51.5); MEAN CORPUSCULAR HEMOGLOBIN 28 pg (27-31); MEAN CORPUSCULAR HGB CONC 33 % (32-36); MEAN CORPUSCULAR VOLUME 85 fL (79.0-98.0); MONOCYTES # (AUTO) 0.4 K/uL (0.0-1.0); MONOCYTES % (AUTO) 4.2 % (1.7-9.3); NEUTROPHILS # (AUTO) 9.2 K/uL (1.8-7.7); NEUTROPHILS % (AUTO) 90.6 % (40.0-70.0); PLATELET COUNT (AUTO) 164 K/uL (130-430); RED BLOOD CELL COUNT(AUTO) 3.16 MIL/uL (4.2-6.2); RED CELL DISTRIBUTION WIDTH 16.9 % (9.0-15.0); WHITE BLOOD COUNT (AUTO) 10.1 K/uL (4.8-10.8)
[2021-05-02] MEDS: NOREPINEPHRINE BITARTRATE 4 MG in D5W 246 ML IV PRN (06:58)
[2021-05-02] MEDS: INSULIN REGULAR, HUMAN 100 UNITS/ML, 10 ML VIAL (humuLIN R) SUBCUT PRN ×3 (07:01→19:15)
[2021-05-02 07:53] LABS: ALANINE AMINOTRANSFERASE 20 U/L (12-78); ALBUMIN 1.3 g/dL (3.4-4.8); ANION GAP 14 (5-15); ASPARTATE AMINOTRANSFERASE 29 U/L (10-37); CALCIUM 7.6 mg/dL (8.4-11.0); CHLORIDE 99 mmol/L (98-107); CREATININE 2.12 mg/dL (0.55-1.30); GLUCOSE 185 mg/dL (70-99); POTASSIUM 4.3 mmol/L (3.5-5.1); SODIUM SERUM 131 mmol/L (136-145); TOTAL BILIRUBIN 0.2 mg/dL (0.0-1.0); UREA NITROGEN, BLOOD 80 mg/dL (8-21)
[2021-05-02] MEDS: ALBUTEROL MDI INHALATION 8 GM INH INH SCH ×3 (08:10→22:00)
[2021-05-02] MEDS: cefTRIAXone 1 GM in D5W 50 ML IV SCH (09:00)
[2021-05-02] MEDS: HYDROCORTISONE ACETATE 1 SUPP (ANUSOL HC) RC SCH ×2 (09:00→22:15)
[2021-05-02] MEDS: DEXAMETHASONE SOD PHOSPHATE 10 MG/ML VIAL IVP SCH (09:00)
[2021-05-02] MEDS: PANTOPRAZOLE SODIUM 40 MG/VIAL (PROTONIX) IVP SCH ×2 (09:00→22:16)
[2021-05-02] MEDS: PEG 400/HYPROMELLOSE/GLYCERIN 15 ML DROPS OP SCH ×4 (09:00→22:16)
[2021-05-02] MEDS: CHOLECALCIFEROL (VITAMIN D3) 5,000 UNIT TABLET PO SCH (09:00)
[2021-05-02] MEDS ORDERED: NS 250 ML IV ONE (10:15)
[2021-05-02] MEDS: INSULIN GLARGINE 100 UNITS/ML 10 ML VIAL SUBCUT SCH (10:40)
[2021-05-02] MEDS: PROPOFOL DRIP 100 ML IV PRN ×2 (10:41→19:05)
[2021-05-02] MEDS: ASCORBIC ACID 500 MG TABLET PO SCH ×2 (10:41→22:16)
--- NOTE | 2021-05-02 11:03 | NUR ---
There was a frantic call received from pt's niece that she wants to come and see pt before "they pulled out the tube" I told her she can not visit needs to talk to immediate family. This RN called pt's son Osman called back, said no other family allowed to visit and he discussed with Dr SALGADO about terminal extubation awaiting call from "lung doctor".
[2021-05-02] MEDS ORDERED: NOREPINEPHRINE BITARTRATE 4 MG in NS 246 ML IV PRN (11:30)
--- NOTE | 2021-05-02 13:30 | NUR ---
@1390 Aide pt's son also called back that they agreed to terminal extubation of the pt that she is DNR,and fax number given. Faxed POLST received was dated 09/25/20 stated DNR but there is another one in the chart stating pt requested FULL TREATMENT dated 04/14/21 so there is discrepancies. There is need for clarification so ZI murphy RN sought help from Patricia assistant case manager to liaise with family. Because as at this time no order received for TERMINAL EXTUBATION from any of the doctors.
--- NOTE | 2021-05-02 15:34 | NUR ---
Social Service Notes SITE WORKER received a request from deck handRn. Hawkins asking SITE WORKER to confirm with pts.' son, Aide and Osman, that they want to provide comfort measures and make the POLST a DNR, signed by pt. and Dr. SITE WORKER will call sons to confirm this is their wishes. Gay Hawkins came to SITE WORKER's office to notify her of a more recent POLST signed by patient on 04/14/21 indicating pt. wants attempts at resuscitation and full treatment signed and dated by pt. on 04/14/21. This form is not signed by a Dr. SITE WORKER called and spoke to Osman who stated he was not aware of the POLST dated 04/14/21 and stated, "I know what she would want and she would not want to live like this". Son, stated he and brother Aide still want to move to comfort measures and DNR. SITE WORKER stated she will let the Rn. Hawkins know.
--- NOTE | 2021-05-02 16:45 | NUR ---
Complete CHG bath and linen changed. Oral and leung care done pt tolerated well.
--- NOTE | 2021-05-02 17:41 | NUR ---
Nutrition F/U Admitting Diagnosis CHF, pneumonia, respiratory failure Reviewed Pertinent Medical/Surgical Hx Medical Record Other Medical History Comment: COPD, CHF, DM, renal failure per physician notes Pt also found w/ sepsis, COVID-19 pneumonia, acute hypoxic respiratory failure, and COPD per physician notes SARS-CoV-2 Ag (Rapid) Positive 04/21 Subjective Information: RD bedside visit deferred d/t airborne isolation precautions a/w COVID. 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 Pt is not meeting nutritional needs. Current Diet Order/Nutrition Support: Nepro at 35 ml/hr, Free Water Flush: 50 ml Q4H (per physician) via NGT x8 days Pertinent Medications: VIT D3, VIT C, propofol at 5.484 ml/hr (145 kcal/day), lantus, protonix IV, SSI, decadron Pertinent Labs: Na 131 L, BUN 80 H, CRE 2.12 H, BG 185 H, POC BG 186 H, ALP 195 H Height (Feet) 5 feet Height (Inches) 6.00 inches Weight (Pounds) 403 pounds (stable since 04/24) Patient Weight 182.798 kg Body Mass Index 65.04 kg/m2 -- morbid obesity, class III %IBW [address] [place]/Adjusted Body Weight 130#/59 kg.198#/90 kg Estimated Energy Expenditure (kcals/day) 2676 (PSU 2009 d/t critical illness, intubated; Ve: 14.8; Tmax: 37.1'C) Estimated Protein Required (g/day) 71-89 (1.2-1.5 gm/kg IBW d/t renal failure, sepsis) Estimated Fluid Required (l/day) Per physician d/t CHF, renal failure Problem/Etiology/Signs/Symptoms Suboptimal EN support R/T metabolic demands AEB current EN support meets <80% of estimated nutritional. (*ongoing) Altered nutrition-related labs R/T endocrine and renal dysfunction AEB abnormal Na, BUn, BG, POC BG, and ALP lab values. (*ongoing) Expected Outcomes/Goals - Monitor tolerance to EN support w/ goal of pt meeting at least 80% of estimated nutritional requirements, labs trending WNL, normal GI function, and skin integrity/wt maintenance Dietitian Recommendations * Continue TF prescription as per physician order * If when/medically appropriate, consider Nepro at 50 ml/hr (new goal rate), Free Water Flush: 50 ml Q4h (per physician) via NGT Provides (w/ propofol infusion): 2305 kcal/day, 97 gm protein/day, and 872 ml free water/day Meets: 86% of estimated caloric needs, 108% of lower end of estimated protein needs Follow Up High Risk: F/U in 2-3 days
--- NOTE | 2021-05-02 17:47 | NUR ---
Dietitian Recommendations * Continue TF prescription as per physician order * If when/medically appropriate, consider Nepro at 50 ml/hr (new goal rate), Free Water Flush: 50 ml Q4h (per physician) via NGT Provides (w/ propofol infusion): 2305 kcal/day, 97 gm protein/day, and 872 ml free water/day Meets: 86% of estimated caloric needs, 108% of lower end of estimated protein needs LP, RD Please refer to Nutrition F/U for details.
--- NOTE | 2021-05-02 19:15 | NUR ---
Change of shift report to Diana LIU updates at the bedside as at this time vitals signs stable afebrile, pt awake restful in bed no sign of distress noted and no chnages in pt's condition. Addendum: 05/02/21 at 1936 by [employer] automation technologist Change of shift report to Diana LIU pt is sedated ongoing propofol drip vitals signs stable no sign of distress afebrile no changes in condition and care plan
[2021-05-03] VITALS (16 sets, daily range): BP systolic 91–139
[2021-05-03] MEDS: NACL 0.9% 1,000 ML IV SCH (01:02)
[2021-05-03] MEDS: ALBUTEROL MDI INHALATION 8 GM INH INH SCH ×2 (07:20→14:10)
--- NOTE | 2021-05-03 07:20 | NUR ---
Opening notes Received report from endorsing night baker RN for continuity of care. Patient lying in bed with an IVF NS @75 mL/hr, dirpivan @ 10 mcg/kg/min. Patient receiving OGT feeding Nepro 1.8 @ 35. Patient's vital sign blood pressure 113/69, heart rate 97, respiration 24, temperature 96.2 F, SPO2 96%. Patient's vent setting PC rate 24, peep 10, and FIO2 @ 70%. Bhagat catheter is in place draining to gravity, yellow. Rectal tube is in place draining to gravity. Bed locked at lowest position, fall and safety precautions is in place.
[2021-05-03] MEDS: CHOLECALCIFEROL (VITAMIN D3) 5,000 UNIT TABLET PO SCH (08:19)
[2021-05-03] MEDS: ASCORBIC ACID 500 MG TABLET PO SCH (08:19)
[2021-05-03] MEDS: PANTOPRAZOLE SODIUM 40 MG/VIAL (PROTONIX) IVP SCH (08:19)
[2021-05-03] MEDS: DEXAMETHASONE SOD PHOSPHATE 10 MG/ML VIAL IVP SCH (08:20)
[2021-05-03] MEDS: cefTRIAXone 1 GM in D5W 50 ML IV SCH (08:27)
[2021-05-03] MEDS: INSULIN GLARGINE 100 UNITS/ML 10 ML VIAL SUBCUT SCH (08:33)
[2021-05-03] MEDS: PEG 400/HYPROMELLOSE/GLYCERIN 15 ML DROPS OP SCH (08:42)
--- NOTE | 2021-05-03 10:25 | NUR ---
Turned on the levophed @ 0.1 mcg/kg/min. Patient's vital sign blood pressure 91/66, respiration 14, heart rate 71, and SPO2 96%.
--- NOTE | 2021-05-03 11:22 | NUR ---
Dr. Engel is in the unit talking to the family member (Osman) on the phone. Gave verbal updates about the patient.
--- NOTE | 2021-05-03 11:50 | NUR ---
Dr. Engel spoke to patient's son Osman regarding the code status of the patient.
[2021-05-03] MEDS ORDERED: MORPHINE SULFATE IN 0.9 % NACL 100 ML IV ONE (11:58)
[2021-05-03] MEDS ORDERED: MORPHINE SULFATE IN 0.9 % NACL 100 ML IV PRN (12:00)
--- NOTE | 2021-05-03 12:01 | NUR ---
Started morphine drip @ 5 mL/hr and increase by 2 mL every 15 minutes per MDs order. Patient's vital sign blood pressure 133/59, heart rate 70, respiration 13, and SPO2 96%.
--- NOTE | 2021-05-03 13:15 | NUR ---
Patient was extubated.
--- NOTE | 2021-05-03 14:06 | NUR ---
Family aware of patient condition. Patient asystole on monitor. Double checked with different leads. No blood pressure, no respirations, no lung sounds, no heart sounds. Pupil fixed and dilated. Patient pronounced at 1406 by myself; NOE Waldrop and witnessed by NOE Figueredo. Family notified. Called bridge crew member at 1418 and called [facility] at 1428.
--- NOTE | 2021-05-03 16:48 | NUR ---
Dr. Corona notified that the patient .
--- NOTE | 2021-05-03 17:06 | NUR ---
Talked to Kait on the phone to notify Dr. Portillo that the patient .
--- NOTE | 2021-05-03 17:17 | NUR ---
Talked to Lazaro to notify Dr. Vegas and Dr. Dale that the patient .
== END 2021-05-03 14:06 | DRG 870 ==
LOC: SED 04:35 → SIC 05:53
PROVIDERS: ADMIT Internal Medicine Hospice and Palliative Medicine; ATTEND Internal Medicine Hospice and Palliative Medicine
PROC: 5A1955Z Respiratory Ventilation, Greater than 96 Consecutive Hours (ICD-10-PCS; principal; 2021-04-21)
PROC: 0BH17EZ Insertion of Endotracheal Airway into Trachea, Via Natural or Artificial Opening (ICD-10-PCS; 2021-04-21)
PROC: 06HY33Z Insertion of Infusion Device into Lower Vein, Percutaneous Approach (ICD-10-PCS; 2021-04-21)
DX: A41.9 Sepsis, unspecified organism (principal); U07.1 COVID-19; J12.82 Pneumonia due to coronavirus disease 2019; J80 Acute respiratory distress syndrome; E43 Unspecified severe protein-calorie malnutrition; I13.0 Hypertensive heart and chronic kidney disease with heart failure and stage 1 through stage 4 chronic kidney disease, or unspecified chronic kidney disease; I50.30 Unspecified diastolic (congestive) heart failure; Z68.44 Body mass index [BMI] 60.0-69.9, adult; N17.9 Acute kidney failure, unspecified; I48.20 Chronic atrial fibrillation, unspecified; J44.0 Chronic obstructive pulmonary disease with (acute) lower respiratory infection; N18.4 Chronic kidney disease, stage 4 (severe); E87.4 Mixed disorder of acid-base balance; I25.10 Atherosclerotic heart disease of native coronary artery without angina pectoris; E78.00 Pure hypercholesterolemia, unspecified; I44.4 Left anterior fascicular block; I87.8 Other specified disorders of veins; R13.10 Dysphagia, unspecified; E66.01 Morbid (severe) obesity due to excess calories; E88.09 Other disorders of plasma-protein metabolism, not elsewhere classified; E11.22 Type 2 diabetes mellitus with diabetic chronic kidney disease; Z88.0 Allergy status to penicillin; Z88.8 Allergy status to other drugs, medicaments and biological substances; Z79.899 Other long term (current) drug therapy; Z79.4 Long term (current) use of insulin; Z95.0 Presence of cardiac pacemaker; Z95.5 Presence of coronary angioplasty implant and graft; Z86.711 Personal history of pulmonary embolism; Z79.82 Long term (current) use of aspirin
CPT/HCPCS: 36415; 36600; 71045; 80053; 80202; 82728; 82803-TC; 82962; 83605; 83735; 83880; 84100; 84443; 84484; 85007; 85018; 85025; 85027; 85379; 86140; 87040; 87070-TC; 87081; 87186-TC; 87205-TC; 93005; 94002; 94003; 94640; 94760; 96365; 96375; 99285; C9113; J0330; J0456; J0696; J1100; J1450; J1650; J1815; J1940; J1956; J2270; J2704; J2930; J3370; J3490; J7040; J7050; J7060; J7613